=== PATIENT | female | born 1955 | race Caucasian/White ===

== ENCOUNTER 2017-06-23 19:13 | Inpatient (IN) | payer OTHER ==
[~2017-06-23] VITALS: Ht 165.1 cm; Wt 70.1 kg
[~2017-06-23 19:13] MED LIST: ALEN70TA2 PO; CALC-439 PO; DICL-201 PO; DIVA500T5 PO; HYDR-4079 PO; LEVO25TA5 PO; MULT-506 PO; OXCA300T4 PO; PRLSR20 PO; TOPI200T14 PO; TOPI25TA55 PO; TOPI50TA16 PO
[2017-06-23 19:51] LABS: BASO % 0.5 %; BASO ABS # 0.03 K/uL (0-0.2); EOS % 3.5 %; EOS ABS # 0.21 K/uL (0-0.5); HEMATOCRIT 38.2 % (37-47); IG# 0.02 K/uL (0.00-0.02); LYMPH % 44.8 %; LYMPH ABS # 2.69 K/uL (1.2-3.4); MEAN CORPUSCULAR HEMOGLOBIN 32.7 pg (25-34); MEAN PLATELET VOLUME 8.7 fL (7.4-10.4); MONO % 7.3 %; MONO ABS # 0.44 K/uL (0.11-0.59); NEUT % 43.6 %; NEUT ABS # 2.61 K/uL (1.4-6.5); PLATELET COUNT 338 K/uL (130-400); RED CELL DISTRIBUTION WIDTH CV 13.8 % (11.5-14.5)
[2017-06-23] MEDS ORDERED: TRAM-10 PO (19:58)
[2017-06-23] MEDS ORDERED: OXYB15TA PO (19:58)
--- NOTE | 2017-06-23 19:59 | DIAGNOSTIC IMAGING REPORT ---
HEAD CT NONCONTRAST CT DOSE: 1074.96 mGy.cm HISTORY: Altered mental status. TECHNIQUE: Multiaxial CT images of the head were performed without the use of intravenous contrast. Automated exposure control was utilized for this study. A dose lowering technique was utilized adhering to the principles of ALARA. Comparison: None. Findings: The paranasal sinuses and mastoid air cells are clear. Again seen are postoperative changes from left temporal craniotomy with associated encephalomalacia in the left temporal lobe. There is mild associated ex vacuo dilatation of the left lateral ventricle. There are age-related involutional changes noting mild subcortical and periventricular microangiopathic disease. There is no hemorrhage, mass-effect, or evidence of acute territorial ischemia by CT criteria. Aburto-white matter differentiation is maintained. No extra-axial fluid collection is seen. Prior left craniotomy and left temporal craniectomy. Impression: No significant change compared to the prior study. No acute intracranial abnormality. Old postoperative changes as described above Electronically signed by: Jacek Kendall M.D. 06/23/2017 7:58 PM Dictated Date/Time: 06/23/2017 7:52 PM
--- NOTE | 2017-06-23 20:09 | DIAGNOSTIC IMAGING REPORT ---
CHEST ONE VIEW PORTABLE HISTORY: Altered mental status. COMPARISON: Chest 05/30/2013. FINDINGS: Surgical clip within the left upper quadrant. Old, healed left-sided rib fractures. The heart is normal in size. Stable linear scarlike densities within the lung bases. Stable blunting of the left lateral costophrenic sulcus. No pleural effusions. No pneumothorax. No new focal lung consolidations. IMPRESSION: No significant change compared to the prior study. No acute process. Electronically signed by: Jacek Kendall M.D. 06/23/2017 8:07 PM Dictated Date/Time: 06/23/2017 8:06 PM
[2017-06-23 20:14] LABS: ALBUMIN 3.2 gm/dl (3.4-5.0); ALT/SGPT 14 U/L (12-78); AST/SGOT 10 U/L (15-37); BLOOD UREA NITROGEN 26 mg/dl (7-18); CALCIUM 8.2 mg/dl (8.5-10.1); CARBON DIOXIDE 26 mmol/L (21-32); CREATININE 0.68 mg/dl (0.60-1.20); GLUCOSE 89 mg/dl (70-99); POTASSIUM 3.9 mmol/L (3.5-5.1); SODIUM 135 mmol/L (136-145)
[2017-06-23 20:19] LABS: ALKALINE PHOSPHATASE 85 U/L (45-117); TOTAL PROTEIN 7.1 gm/dl (6.4-8.2)
[2017-06-23] MEDS ORDERED: CEFTRIAXONE SOD INJ 1 GM ADDVIAL IV STA (20:32)
[2017-06-23] MEDS ORDERED: ONDANSETRON INJ 2 MG/ML 2 ML VIAL IV PRN (21:30)
[2017-06-23] MEDS ORDERED: DULO60CA44 PO (21:33)
[2017-06-23] MEDS ORDERED: POLY335019 PO (21:33)
[2017-06-23] MEDS ORDERED: TRAMADOL HCL 50 MG TAB PO PRN (21:45)
[2017-06-23] MEDS ORDERED: POLYETHYLENE (MIRALAX) 17 GM PACK PO PRN (21:45)
--- NOTE | 2017-06-23 22:14 | History and Physical ---
History & Physical Date & Time of Service: Jun 23, 2017 at 21:57 Chief Complaint: Altered Mental Status Primary Care Physician: Diann Vaughan M.D. History of Present Illness 61 year old female who presents to the ED with altered mental status. Patient has history of TBI and Epilepsy. History is unobtainable from patient due to her mental status. Per review of outpatient records, patient does have a caregiver however she is unable to provide the name of that person currently. Patient was found wandering the halls of her apartment building. Her neighbors called EMS. Patient is currently without complaint. When asked orientation questions, she responds, "Oh I hate this." In the ED, patient's U/A suggests UTI. Other labs are unremarkable. Vitals are stable. Past Medical/Surgical History Medical Problems: (1) Chronic pain Status: Chronic (2) Epilepsy Status: Chronic (3) Hypothyroidism Status: Chronic (4) TBI (traumatic brain injury) Status: Chronic Surgical Problems: (1) History of cataract surgery Status: Chronic (2) History of hip surgery Status: Chronic (3) S/P surgical manipulation of ankle joint Status: Chronic Family History FH: breast cancer MOTHER Social History Smoking Status: Former Smoker Alcohol Use: none Immunizations History of Influenza Vaccine: Yes Influenza Vaccine Date: Feb 26, 2017 History of Tetanus Vaccine?: Yes Tetanus Immunization Date: Aug 23, 2008 Multi-Drug Resistant Organisms History of MDRO: No Allergies Coded Allergies: Clindamycin (Verified Allergy, Intermediate, RASH, 06/23/17) Lacosamide (Verified Allergy, Unknown, confusion, 06/23/17) Home Medications Scheduled Calcium Carbonate-Vitamin D (Oyster Shell Calcium/D3 500-400 mg-Unit), 1 TAB PO BID Diclofenac (Voltaren), 75 MG PO BID Divalproex Sodium (Depakote Delay Rel), 1,000 MG PO BID Duloxetine Hcl (Cymbalta), 1 CAP PO DAILY Hydrocodone/Acetaminophen 10MG/325MG ([place] 10MG/325MG), 1 TABLET PO BID Levothyroxine Sodium (Levothyroxine Sodium), 25 MCG PO DAILY Multivitamin (Multivitamin), 1 TABLET PO DAILY Omeprazole (Prilosec), 20 MG PO UD Oxcarbazepine (Trileptal), 600 MG PO BID Oxybutynin Chloride (Oxybutynin Chloride Er), 15 MG PO DAILY Topiramate (Topamax), 200 MG PO BID Topiramate (Topamax), 25 MG PO BID Scheduled PRN Polyethylene Glycol 3350 (Miralax), 17 GM PO DAILY PRN for Constipation Tramadol (Ultram), 50 MG PO Q6H PRN for Pain Review of Systems unobtainable due to patient's mental status Physical Exam Vital Signs Date Time Temp Pulse Resp B/P (MAP) Pulse Ox O2 Delivery O2 Flow Rate FiO2 06/23/17 21:43 78 17 97 06/23/17 21:28 84 22 96 06/23/17 21:13 80 22 95 06/23/17 20:58 82 14 97 06/23/17 20:43 81 96 06/23/17 20:30 152/76 06/23/17 20:28 78 17 95 06/23/17 20:13 77 20 97 06/23/17 20:01 146/37 06/23/17 19:58 82 24 98 06/23/17 19:30 153/86 06/23/17 19:28 83 18 98 Room Air 06/23/17 19:21 82 06/23/17 19:18 167/110 06/23/17 19:18 36.6 93 19 167/110 96 Room Air General Appearance: WD/WN, no apparent distress Head: normocephalic, atraumatic Eyes: normal inspection, EOMI, sclerae normal ENT: hearing grossly normal, + pertinent finding (mucous membranes dry) Neck: supple, no JVD, trachea midline Respiratory/Chest: no respiratory distress, + crackles (faint right base that clear with coughing) Cardiovascular: regular rate, rhythm, no edema, normal peripheral pulses Abdomen/GI: normal bowel sounds, non tender, soft, no organomegaly Back: no CVA tenderness Extremities/Musculoskelatal: normal inspection, no calf tenderness, normal capillary refill Neurologic/Psych: no motor/sensory deficits, alert, + disoriented (to time, place, and situation) Skin: normal color, warm/dry Diagnostics Laboratory Results Results Past 24 Hours Test 06/23/17 19:29 06/23/17 19:40 06/23/17 19:57 Range/Units Bedside Glucose 97 70-90 mg/dl White Blood Count 6.00 4.8-10.8 K/uL Red Blood Count 3.98 4.2-5.4 M/uL Hemoglobin 13.0 12.0-16.0 g/dL Hematocrit 38.2 37-47 % Mean Corpuscular Volume 96.0 80-100 fL Mean Corpuscular Hemoglobin 32.7 25-34 pg Mean Corpuscular Hemoglobin Concent 34.0 32-36 g/dl Platelet Count 338 130-400 K/uL Mean Platelet Volume 8.7 7.4-10.4 fL Neutrophils (%) (Auto) 43.6 % Lymphocytes (%) (Auto) 44.8 % Monocytes (%) (Auto) 7.3 % Eosinophils (%) (Auto) 3.5 % Basophils (%) (Auto) 0.5 % Neutrophils # (Auto) 2.61 1.4-6.5 K/uL Lymphocytes # (Auto) 2.69 1.2-3.4 K/uL Monocytes # (Auto) 0.44 0.11-0.59 K/uL Eosinophils # (Auto) 0.21 0-0.5 K/uL Basophils # (Auto) 0.03 0-0.2 K/uL RDW Standard Deviation 49.0 36.4-46.3 fL RDW Coefficient of Variation 13.8 11.5-14.5 % Immature Granulocyte % (Auto) 0.3 % Immature Granulocyte # (Auto) 0.02 0.00-0.02 K/uL Macrocytosis PRESENT Prothrombin Time 10.6 9.0-12.0 SECONDS Prothromb Time International Ratio 1.0 0.9-1.1 Activated Partial Thromboplast Time 27.0 21.0-31.0 SECONDS Partial Thromboplastin Ratio 1.0 Sodium Level 135 136-145 mmol/L Potassium Level 3.9 3.5-5.1 mmol/L Chloride Level 104 98-107 mmol/L Carbon Dioxide Level 26 21-32 mmol/L Anion Gap 5.0 3-11 mmol/L Blood Urea Nitrogen 26 7-18 mg/dl Creatinine 0.68 0.60-1.20 mg/dl Estimated GFR () 107.1 Estimated GFR (Non- 92.4 BUN/Creatinine Ratio 38.0 10-20 Random Glucose 89 70-99 mg/dl Calcium Level 8.2 8.5-10.1 mg/dl Total Bilirubin 0.4 0.2-1 mg/dl Direct Bilirubin 0.1 0-0.2 mg/dl Aspartate Amino Transf (AST/SGOT) 10 15-37 U/L Alanine Aminotransferase (ALT/SGPT) 14 12-78 U/L Alkaline Phosphatase 85 45-117 U/L Troponin I < 0.015 0-0.045 ng/ml Total Protein 7.1 6.4-8.2 gm/dl Albumin 3.2 3.4-5.0 gm/dl Valproic Acid (Depakene) Level 69 50-100 mcg/ml Urine Color YELLOW Urine Appearance CLOUDY CLEAR Urine pH 7.5 4.5-7.5 Urine Specific [place] 1.015 1.000-1.030 Urine Protein NEG NEG Urine Glucose (UA) NEG NEG Urine Ketones NEG NEG Urine Occult Blood 1+ NEG Urine Nitrite POS NEG Urine Bilirubin NEG NEG Urine Urobilinogen NEG NEG Urine Leukocyte Esterase SMALL NEG Urine WBC (Auto) 10-30 0-5 /hpf Urine RBC (Auto) 5-10 0-4 /hpf Urine Hyaline Casts (Auto) 1-5 0-5 /lpf Urine Epithelial Cells (Auto) 10-20 0-5 /lpf Urine Bacteria (Auto) 3+ NEG Microbiology Results 06/23/17 Urine Culture, Received Pending Diagnostic Radiology CT Head Impression: No significant change compared to the prior study. No acute intracranial abnormality. Old postoperative changes as described above CXR IMPRESSION: No significant change compared to the prior study. No acute process. Impression Assessment and Plan METABOLIC ENCEPHALOPATHY DUE TO UTI - admit to med/surg - patient presenting to ED after being found wandering in her apartment building , neighbors called EMS; in the ED, patient's U/A suggestive of UTI - head CT negative for acute findings - s/p Rocephin in the ED, will continue with and adjust per culture results - no signs of sepsis - IVF - if patient does not improve with above treatment, could consider neuro work up - will need to reach out to family/caregiver tomorrow to determine baseline mental status HX TBI, EPILEPSY - appears stable - nothing in the history to suggest seizure like activity or postictal state - continue oxcarbazepine, divalproex, and topiramate - noted normal valproic acid level HYPOTHYROIDISM - TSH WNL - continue levothyroxine DVT PROPHYLAXIS - SQ Lovenox DISPO - In my clinical judgment this beneficiary meets acute admission criteria, established by [facility], that includes being hospitalized through two midnights. - PT/OT lolly I have seen and evaluated the patient and agree with the assessment and plan as above. After receiving a dose of antibiotic, she is able to tell me she is in a hospital and she knows the president and the month. She is still exhibiting an expressive aphasia that she reports is chronic for her since the TBI. Nonfocal exam and CT head negative but Neuro evaluation appreciated in this setting of seizures and h/o TBI. Mark Anthony, DO VTE Prophylaxis VTE Risk Assessment Done? Y/N: Yes Risk Level: Moderate
[2017-06-23 23:00] VITALS: BP 162/104; PULSE 90; TEMP 36.4; O2SAT 98; Ht 165.1 cm; Wt 70.1 kg
[2017-06-23 23:55] VITALS: BP 154/89; PULSE 77; TEMP 36.7; O2SAT 98
[2017-06-24] MEDS: SODIUM CHLORIDE 0.9% 1000ML 1,000 ML IV SCH ×2 (00:07→14:07)
[2017-06-24] MEDS: ENOXAPARIN 40 MG/0.4 ML SYR SQ SCH ×2 (00:07→20:46)
--- NOTE | 2017-06-24 00:23 | EMERGENCY ROOM VISIT NOTE ---
History Report prepared by Nusrat: Christopher Vieira Under the Supervision of: Gregory SmithO. First contact with patient: 19:34 Chief Complaint: NEURO SYMPTOMS Stated Complaint: CONFUSION, AMS Nursing Triage Summary: Found standing in hallway in defensive posture, non-combative by other residence in her apartment building hallway. Unknown time of onset. Pt is oriented to person, disoriented to place and month. Denies symptoms. Poor historian. History of Present Illness The patient is a 62 year old female who presents to the Emergency Room with complaints of neuro symptoms starting prior to arrival. Per the nursing staff, the patient was found confused wandering her hallway staring off into the distance, and the neighbors called the EMS. The patient denies any headache, chest pain, shortness of breath, abdominal pain, and pain with urination. She states that she is having some right knee pain. History is limited secondary to altered mental status. The patient has a history of epilepsy and TBI. Source of History: patient, nursing staff History Limited By: AMS Onset: prior to arrival Position: other (global) Quality: other (neuro symptoms) Timing: other (persistent) Associated Symptoms: No headache, No chest pain, No SOB, No abdominal pain Note: Associated symptoms: Confusion Review of Systems The patient's history is limited secondary to altered mental status Past Medical & Surgical Medical Problems: (1) Chronic pain (2) Epilepsy (3) Hypothyroidism (4) TBI (traumatic brain injury) Surgical Problems: (1) History of cataract surgery (2) History of hip surgery (3) S/P surgical manipulation of ankle joint Family History FH: cancer FH: heart disease Seizures Social History Smoking Status: Former Smoker Alcohol Use: none Drug Use: none Marital Status: Occupation Status: disabled Current/Historical Medications Scheduled Calcium Carbonate-Vitamin D (Oyster [place] Calcium/D3 500-400 mg-Unit), 1 TAB PO BID Diclofenac (Voltaren), 75 MG PO BID Divalproex Sodium (Depakote Delay Rel), 1,000 MG PO BID Duloxetine Hcl (Cymbalta), 1 CAP PO DAILY Hydrocodone/Acetaminophen 10MG/325MG ([place] 10MG/325MG), 1 TABLET PO BID Levothyroxine Sodium (Levothyroxine Sodium), 25 MCG PO DAILY Multivitamin (Multivitamin), 1 TABLET PO DAILY Omeprazole (Prilosec), 20 MG PO UD Oxcarbazepine (Trileptal), 600 MG PO BID Oxybutynin Chloride (Oxybutynin Chloride Er), 15 MG PO DAILY Topiramate (Topamax), 200 MG PO BID Topiramate (Topamax), 25 MG PO BID Scheduled PRN Polyethylene Glycol 3350 (Miralax), 17 GM PO DAILY PRN for Constipation Tramadol (Ultram), 50 MG PO Q6H PRN for Pain Allergies Coded Allergies: Clindamycin (Verified Allergy, Intermediate, RASH, 06/23/17) Lacosamide (Verified Allergy, Unknown, confusion, 06/23/17) Physical Exam Vital Signs Date Time Temp Pulse Resp B/P (MAP) Pulse Ox O2 Delivery O2 Flow Rate FiO2 06/23/17 21:13 80 22 95 06/23/17 20:58 82 14 97 06/23/17 20:43 81 96 06/23/17 20:30 152/76 06/23/17 20:28 78 17 95 06/23/17 20:13 77 20 97 06/23/17 20:01 146/37 06/23/17 19:58 82 24 98 06/23/17 19:30 153/86 06/23/17 19:28 83 18 98 Room Air 06/23/17 19:21 82 06/23/17 19:18 167/110 06/23/17 19:18 36.6 93 19 167/110 96 Room Air Physical Exam GENERAL: Sitting up in bed, confused but following commands. EYE EXAM: normal conjunctiva. PERRL and EOM's intact. OROPHARYNX: no exudate, no erythema, lips, buccal mucosa, and tongue normal and mucous membranes are moist NECK: supple, no nuchal rigidity, no adenopathy, non-tender LUNGS: Clear to auscultation. Normal chest wall mechanics HEART: no murmurs, S1 normal and S2 normal ABDOMEN: abdomen soft, non-tender, normo-active bowel sounds, no masses, no rebound or guarding. BACK: Back is symmetrical on inspection and there is no deformity, no midline tenderness, no CVA tenderness. SKIN: no rashes and no bruising UPPER EXTREMITIES: upper extremities are grossly normal. LOWER EXTREMITIES: No pitting edema. NEURO EXAM: Oriented to person, not place, year, or date. Slight right sided facial droop, cranial nerves II-XII intact, normal speech, no weakness of arms , no weakness of legs. No drift. Finger to nose intact. Gross sensation intact. Medical Decision & Procedures ER Provider Diagnostic Interpretation: Radiology results as stated below per my review and the radiologist's interpretation: HEAD CT NONCONTRAST CT DOSE: 1074.96 mGy.cm HISTORY: Altered mental status. TECHNIQUE: Multiaxial CT images of the head were performed without the use of intravenous contrast. Automated exposure control was utilized for this study. A dose lowering technique was utilized adhering to the principles of ALARA. Comparison: None. Findings: The paranasal sinuses and mastoid air cells are clear. Again seen are postoperative changes from left temporal craniotomy with associated encephalomalacia in the left temporal lobe. There is mild associated ex vacuo dilatation of the left lateral ventricle. There are age-related involutional changes noting mild subcortical and periventricular microangiopathic disease. There is no hemorrhage, mass-effect, or evidence of acute territorial ischemia by CT criteria. Aburto-white matter differentiation is maintained. No extra-axial fluid collection is seen. Prior left craniotomy and left temporal craniectomy. Impression: No significant change compared to the prior study. No acute intracranial abnormality. Old postoperative changes as described above Electronically signed by: Jacek Kendall M.D. 06/23/2017 7:58 PM Dictated Date/Time: 06/23/2017 7:52 PM CHEST ONE VIEW PORTABLE HISTORY: Altered mental status. COMPARISON: Chest 05/30/2013. FINDINGS: Surgical clip within the left upper quadrant. Old, healed left-sided rib fractures. The heart is normal in size. Stable linear scarlike densities within the lung bases. Stable blunting of the left lateral costophrenic sulcus. No pleural effusions. No pneumothorax. No new focal lung consolidations. IMPRESSION: No significant change compared to the prior study. No acute process. Electronically signed by: Jacek Kendall M.D. 06/23/2017 8:07 PM Dictated Date/Time: 06/23/2017 8:06 PM Laboratory Results 06/23/17 19:40 Red Blood Count 3.98, Mean Corpuscular Volume 96.0, Mean Corpuscular Hemoglobin 32.7, Mean Corpuscular Hemoglobin Concent 34.0, Mean Platelet Volume 8.7, Neutrophils (%) (Auto) 43.6, Lymphocytes (%) (Auto) 44.8, Monocytes (%) (Auto) 7.3, Eosinophils (%) (Auto) 3.5, Basophils (%) (Auto) 0.5, Neutrophils # (Auto) 2.61, Lymphocytes # (Auto) 2.69, Monocytes # (Auto) 0.44, Eosinophils # (Auto) 0.21, Basophils # (Auto) 0.03 06/23/17 19:40 Test 06/23/17 19:29 06/23/17 19:40 06/23/17 19:57 Bedside Glucose 97 mg/dl (70-90) White Blood Count 6.00 K/uL (4.8-10.8) Red Blood Count 3.98 M/uL (4.2-5.4) Hemoglobin 13.0 g/dL (12.0-16.0) Hematocrit 38.2 % (37-47) Mean Corpuscular Volume 96.0 fL (80-100) Mean Corpuscular Hemoglobin 32.7 pg (25-34) Mean Corpuscular Hemoglobin Concent 34.0 g/dl (32-36) Platelet Count 338 K/uL (130-400) Mean Platelet Volume 8.7 fL (7.4-10.4) Neutrophils (%) (Auto) 43.6 % Lymphocytes (%) (Auto) 44.8 % Monocytes (%) (Auto) 7.3 % Eosinophils (%) (Auto) 3.5 % Basophils (%) (Auto) 0.5 % Neutrophils # (Auto) 2.61 K/uL (1.4-6.5) Lymphocytes # (Auto) 2.69 K/uL (1.2-3.4) Monocytes # (Auto) 0.44 K/uL (0.11-0.59) Eosinophils # (Auto) 0.21 K/uL (0-0.5) Basophils # (Auto) 0.03 K/uL (0-0.2) RDW Standard Deviation 49.0 fL (36.4-46.3) RDW Coefficient of Variation 13.8 % (11.5-14.5) Immature Granulocyte % (Auto) 0.3 % Immature Granulocyte # (Auto) 0.02 K/uL (0.00-0.02) Macrocytosis PRESENT Prothrombin Time 10.6 SECONDS (9.0-12.0) Prothromb Time International Ratio 1.0 (0.9-1.1) Activated Partial Thromboplast Time 27.0 SECONDS (21.0-31.0) Partial Thromboplastin Ratio 1.0 Anion Gap 5.0 mmol/L (3-11) Estimated GFR () 107.1 Estimated GFR (Non- 92.4 BUN/Creatinine Ratio 38.0 (10-20) Calcium Level 8.2 mg/dl (8.5-10.1) Total Bilirubin 0.4 mg/dl (0.2-1) Direct Bilirubin 0.1 mg/dl (0-0.2) Aspartate Amino Transf (AST/SGOT) 10 U/L (15-37) Alanine Aminotransferase (ALT/SGPT) 14 U/L (12-78) Alkaline Phosphatase 85 U/L (45-117) Troponin I < 0.015 ng/ml (0-0.045) Total Protein 7.1 gm/dl (6.4-8.2) Albumin 3.2 gm/dl (3.4-5.0) Thyroid Stimulating Hormone (TSH) 2.290 uIu/ml (0.300-4.500) Valproic Acid (Depakene) Level 69 mcg/ml (50-100) Urine Color YELLOW Urine Appearance CLOUDY (CLEAR) Urine pH 7.5 (4.5-7.5) Urine Specific [place] 1.015 (1.000-1.030) Urine Protein NEG (NEG) Urine Glucose (UA) NEG (NEG) Urine Ketones NEG (NEG) Urine Occult Blood 1+ (NEG) Urine Nitrite POS (NEG) Urine Bilirubin NEG (NEG) Urine Urobilinogen NEG (NEG) Urine Leukocyte Esterase SMALL (NEG) Urine WBC (Auto) 10-30 /hpf (0-5) Urine RBC (Auto) 5-10 /hpf (0-4) Urine Hyaline Casts (Auto) 1-5 /lpf (0-5) Urine Epithelial Cells (Auto) 10-20 /lpf (0-5) Urine Bacteria (Auto) 3+ (NEG) Urine Opiates Screen POS (NEG) Urine Methadone, Qualitative NEG (NEG) Urine Barbiturates NEG (NEG) Urine Phencyclidine (PCP) Level NEG (NEG) Ur Amphetamine/Methamphetamine NEG (NEG) MDMA (Ecstasy) Screen NEG (NEG) Urine Benzodiazepines Screen NEG (NEG) Urine Cocaine Metabolite NEG (NEG) Urine Marijuana (THC) NEG (NEG) Laboratory results per my review. Medications Administered Medications (Trade) Dose Ordered Sig/Ten Route Start Time Stop Time Status Last Admin Dose Admin Ceftriaxone Sodium (Rocephin Inj) 1 gm NOW STAT IV 06/23/17 20:32 06/23/17 20:33 DC 06/23/17 20:54 1 GM ECG Indication: other (neuro symptoms) Rate (beats per minute): 77 Rhythm: sinus rhythm Findings: no ectopy, other (normal axis) Change: EKG interpreted by me. ED Course ED COURSE: Vital signs were reviewed and showed situational hypertension The patients medical record was reviewed The above diagnostic studies were performed and reviewed. ED treatments and interventions as stated above. 1933: The patient was evaluated in room B7. A complete history and physical examination was performed. 2031: Rocephin 1gm IV 2042: I tried to call the patient's sister, and I was unsuccessful. 2044: Upon reevaluation, the patient is resting.I discussed my findings with the patient and she understands and agrees with the treatment plan. Based on the patients age, coexisting illnesses, exam and lab findings the decision to treat as an inpatient was made. The patient remained stable while under my care. The patient will be evaluated for further management. 2053: I reviewed the patient's case with Dr. Mark Anthony Kelly Hospitalist. She will evaluate the patient for further management. Medical Decision Differential diagnoses includes but is not limited to toxic, metabolic, infectious, traumatic, cardiac, neurologic, hematologic, psychiatric and inflammatory etiologies. Patient is a 62-year-old female who presents to ER brought in as she is wondering halls of an apartment complex confused. Unable to contact family. She has no complaints at this time. Does have a history of TBI per chart review. CBC unremarkable. BMP along with LFTs, bilirubin and troponin was negative. TSH normal. UA has nitrates, leuks, white cells and +3 bacteria. Patient was given IV Rocephin. CT head and chest x-ray was unremarkable. She is admitted to internal medicine for altered mental status and a UTI. Medication Reconcilliation Current Medication List: was personally reviewed by me Blood Pressure Screening Patient's blood pressure: Elevated blood pressure Blood pressure disposition: Elevated BP felt to be situational Consults Time Called: 2049 Consulting Physician: Dr. Mark Anthony Kelly Hospitalist Returned Call: 2053 I reviewed the patient's case with Dr. Mark Anthony [facility]. She will evaluate the patient for further management. Impression Primary Impression: Altered mental status Additional Impression: UTI (urinary tract infection) Scribe Attestation The scribe's documentation has been prepared under my direction and personally reviewed by me in its entirety. I confirm that the note above accurately reflects all work, treatment, procedures, and medical decision making performed by me. Departure Information Dispostion Being Evaluated By Hospitalist Referrals Diann Vaughan M.D. (PCP) Patient Instructions My [facility] Problem Qualifiers Primary Impression: Altered mental status Altered mental status type: unspecified Qualified Codes: R41.82 - Altered mental status, unspecified Additional Impression: UTI (urinary tract infection) Urinary tract infection type: acute cystitis Hematuria presence: with hematuria Qualified Codes: N30.01 - Acute cystitis with hematuria
[2017-06-24] MEDS: DIVALPROEX SODIUM 500 MG DELAY RELEASE TAB PO SCH ×3 (01:10→20:41)
[2017-06-24] MEDS: TOPIRAMATE 25 MG TAB PO SCH ×3 (01:12→20:47)
[2017-06-24] MEDS: TOPIRAMATE 100 MG TAB PO SCH ×3 (01:12→20:42)
[2017-06-24] MEDS: OXCARBAZEPINE 150 MG TAB PO SCH ×3 (01:13→20:42)
[2017-06-24 05:57] LABS: HEMATOCRIT 37.3 % (37-47); HEMOGLOBIN 12.4 g/dL (12.0-16.0); MEAN CELL VOLUME 95.2 fL (80-100); MEAN CORPUSCULAR HEMOGLOBIN 31.6 pg (25-34); MEAN CORPUSCULAR HGB CONC 33.2 g/dl (32-36); MEAN PLATELET VOLUME 8.9 fL (7.4-10.4); PLATELET COUNT 309 K/uL (130-400); RED CELL DISTRIBUTION WIDTH CV 13.7 % (11.5-14.5); RED CELL DISTRIBUTION WIDTH SD 47.5 fL (36.4-46.3); WHITE BLOOD COUNT 7.94 K/uL (4.8-10.8)
[2017-06-24] MEDS: LEVOTHYROXINE 25 MCG TAB PO SCH (06:20)
[2017-06-24 06:49] LABS: CREATININE 0.59 mg/dl (0.60-1.20); POTASSIUM 3.7 mmol/L (3.5-5.1)
[2017-06-24] MEDS: DULOXETINE HCL 60 MG CAP PO SCH (07:19)
[2017-06-24] MEDS: PANTOprazole SOD 40 MG TAB PO SCH (07:19)
[2017-06-24] MEDS: MULTIVITAMIN TAB PO SCH (07:20)
[2017-06-24] MEDS: OXYBUTYNIN CHLORIDE 5 MG TABCR PO SCH (07:20)
[2017-06-24] MEDS: DICLOFENAC SOD EC 75 MG TABCR PO SCH ×2 (07:20→20:44)
[2017-06-24] MEDS: CALCIUM 600MG + VIT D 400 IU TAB PO SCH ×2 (07:20→20:43)
[2017-06-24 07:47] VITALS: BP 135/86; PULSE 69; TEMP 36.7; O2SAT 97
[2017-06-24] MEDS ORDERED: DIVALPROEX SODIUM 500 MG DELAY RELEASE TAB PO SCH (08:00)
[2017-06-24] MEDS ORDERED: OXCARBAZEPINE 150 MG TAB PO SCH (08:00)
[2017-06-24] MEDS ORDERED: TOPIRAMATE 100 MG TAB PO SCH (08:00)
[2017-06-24] MEDS ORDERED: TOPIRAMATE 25 MG TAB PO SCH (08:00)
--- NOTE | 2017-06-24 14:17 | Neurology Consultation ---
Neurology Consultation Date of Consultation: Jun 24, 2017. Attending Physician: Satish Dick M.D. Primary Care Physician: Diann Vaughan M.D. History of Present Illness Source: patient enter into patients chart in error. Dr Gomez patient will be consulting him for work up Past Medical/Surgical History Medical Problems: (1) Altered mental status Status: Acute (2) UTI (urinary tract infection) Status: Acute Social History Smoking Status: Former smoker Drug Use: none Marital Status: Occupation Status: disabled Allergies Coded Allergies: Clindamycin (Verified Allergy, Intermediate, RASH, 06/23/17) Lacosamide (Verified Allergy, Unknown, confusion, 06/23/17) Review of Systems Cardiovascular: + PND
[2017-06-24 15:34] VITALS: BP 121/76; PULSE 91; TEMP 36.8; O2SAT 98
--- NOTE | 2017-06-24 19:42 | Progress Note ---
Medicine Progress Note Date & Time of Visit: Jun 24, 2017 at 19:42 . Subjective CC: Follow-up visit for altered mental status and other problems. HPI: Feels better today. No fever. No chest pain. No cough or SOB. No nausea, vomiting, diarrhea. No dysuria. ROS: as noted above in HPI . Objective Last 8 Hrs Date Time Temp Pulse Resp B/P (MAP) Pulse Ox O2 Delivery O2 Flow Rate FiO2 06/24/17 16:00 Room Air 06/24/17 15:34 36.8 91 18 121/76 (91) 98 Room Air Physical Exam: General- lying in bed; o distress Lungs- clear to auscultation; no respiratory distress Cardiovascular- RRR; no gallop; no JVD; no pretibial edema Abdomen- + bowel sounds, soft, nontender Extremities- no cyanosis; no calf tenderness Neuro- alert, oriented per day of week, year, president; slow mentation; some difficulty with word finding Skin- warm & dry . Laboratory Results: Last 24 Hours Test 06/23/17 19:57 06/24/17 05:40 Urine Color YELLOW Urine Appearance CLOUDY Urine pH 7.5 Urine Specific [place] 1.015 Urine Protein NEG Urine Glucose (UA) NEG Urine Ketones NEG Urine Occult Blood 1+ Urine Nitrite POS Urine Bilirubin NEG Urine Urobilinogen NEG Urine Leukocyte Esterase SMALL Urine WBC (Auto) 10-30 /hpf Urine RBC (Auto) 5-10 /hpf Urine Hyaline Casts (Auto) 1-5 /lpf Urine Epithelial Cells (Auto) 10-20 /lpf Urine Bacteria (Auto) 3+ Urine Opiates Screen POS Urine Methadone, Qualitative NEG Urine Barbiturates NEG Urine Phencyclidine (PCP) Level NEG Ur Amphetamine/Methamphetamine NEG MDMA (Ecstasy) Screen NEG Urine Benzodiazepines Screen NEG Urine Cocaine Metabolite NEG Urine Marijuana (THC) NEG White Blood Count 7.94 K/uL Red Blood Count 3.92 M/uL Hemoglobin 12.4 g/dL Hematocrit 37.3 % Mean Corpuscular Volume 95.2 fL Mean Corpuscular Hemoglobin 31.6 pg Mean Corpuscular Hemoglobin Concent 33.2 g/dl RDW Standard Deviation 47.5 fL RDW Coefficient of Variation 13.7 % Platelet Count 309 K/uL Mean Platelet Volume 8.9 fL Sodium Level 135 mmol/L Potassium Level 3.7 mmol/L Chloride Level 103 mmol/L Carbon Dioxide Level 24 mmol/L Anion Gap 8.0 mmol/L Blood Urea Nitrogen 20 mg/dl Creatinine 0.59 mg/dl Est Creatinine Clear Calc Drug Dose 94.6 ml/min Estimated GFR () 112.3 Estimated GFR (Non- 96.9 BUN/Creatinine Ratio 34.1 Random Glucose 90 mg/dl Calcium Level 8.0 mg/dl Date/Time Source Procedure Growth Status 06/23/17 19:57 Urine,Catheterized Urine Culture - Preliminary Gram Negative Bacilli Resulted Assessment & Plan ALTERED MENTAL STATUS Head CT showed chronic changes. Probable encephalopathy secondary to UTI. Consult Neuro- known to Dr. Bustillo. UTI UA showed WBC's and bacteria. Culture results pending. Continue ceftriaxone. SEIZURE DISORDER Continue usual anticonvulsants. VTE PROPHYLAXIS SQ enoxaparin. DISPOSITION Expected discharge to [facility]. Family Medicine follow-up with Dr. Vaughan. . Current Inpatient Medications: Current Inpatient Medications Medications (Trade) Dose Ordered Sig/Ten Route Start Time Stop Time Status Last Admin Dose Admin Enoxaparin Sodium (Lovenox Inj) 40 mg Q24H SQ 06/23/17 23:00 07/23/17 22:59 06/24/17 00:07 40 MG Acetaminophen (Tylenol Tab) 650 mg Q4H PRN PO 06/23/17 21:30 07/23/17 21:29 Ondansetron HCl (Zofran Inj) 4 mg Q6H PRN IV 06/23/17 21:30 07/23/17 21:29 Sodium Chloride 1,000 ml @ 80 mls/hr [id number] IV 06/23/17 23:00 07/23/17 22:59 06/24/17 14:07 80 MLS/HR Ceftriaxone Sodium 1 gm/ Dextrose 50 ml @ 100 mls/hr Q24H IV 06/24/17 21:00 07/02/17 21:29 Diclofenac Sodium (Voltaren Tab) 75 mg BID PO 06/24/17 08:00 07/24/17 08:59 06/24/17 07:20 75 MG Duloxetine HCl (Cymbalta Cap) 60 mg DAILY PO 06/24/17 08:00 07/24/17 08:59 06/24/17 07:19 60 MG Acetaminophen/ Hydrocodone Bitart ([place] 10/325 Tab) 1 tab BID PRN PO 06/23/17 21:45 07/07/17 21:44 Levothyroxine Sodium (Synthroid Tab) 25 mcg DAILYBB PO 06/24/17 06:30 07/24/17 06:59 06/24/17 06:20 25 MCG Multivitamins (Multivitamin Tab) 1 tab DAILY PO 06/24/17 08:00 07/24/17 08:59 06/24/17 07:20 1 TAB Calcium/Vitamin D (Caltrate Plus Tab) 1 tab BID PO 06/24/17 08:00 07/24/17 08:59 06/24/17 07:20 1 TAB Pantoprazole Sodium (Protonix Tab) 40 mg QAM PO 06/24/17 08:00 07/24/17 08:59 06/24/17 07:19 40 MG Oxybutynin Chloride (Ditropan-Xl Tab) 15 mg DAILY PO 06/24/17 08:00 07/24/17 08:59 06/24/17 07:20 15 MG Polyethylene (Miralax Powder Packet) 17 gm DAILY PRN PO 06/23/17 21:45 07/23/17 21:44 Divalproex Sodium (Depakote Delay Rel Tab) 1,000 mg BID PO 06/24/17 00:45 07/24/17 08:59 06/24/17 07:21 1,000 MG Oxcarbazepine (Trileptal Tab) 600 mg BID PO 06/24/17 00:45 07/24/17 08:59 06/24/17 07:20 600 MG Topiramate (Topamax Tab) 25 mg BID PO 06/24/17 00:45 07/24/17 08:59 06/24/17 07:20 25 MG Topiramate (Topamax Tab) 200 mg BID PO 06/24/17 00:45 07/24/17 08:59 06/24/17 07:21 200 MG
[2017-06-24] MEDS: CEFTRIAXONE SOD INJ 1 GM in DEXTROSE 5% ADD-VANTAGE 50ML 50 ML IV SCH (20:44)
[2017-06-25] VITALS: BP 145/92; PULSE 76; TEMP 36.5; O2SAT 100
[2017-06-25] MEDS: SODIUM CHLORIDE 0.9% 1000ML 1,000 ML IV SCH ×2 (00:04→12:37)
[2017-06-25 06:14] LABS: CALCIUM 7.8 mg/dl (8.5-10.1); CREATININE 0.57 mg/dl (0.60-1.20); POTASSIUM 3.3 mmol/L (3.5-5.1)
[2017-06-25] MEDS: LEVOTHYROXINE 25 MCG TAB PO SCH (06:45)
[2017-06-25] MEDS: DICLOFENAC SOD EC 75 MG TABCR PO SCH ×2 (07:25→20:11)
[2017-06-25] MEDS: MULTIVITAMIN TAB PO SCH (07:25)
[2017-06-25] MEDS: TOPIRAMATE 25 MG TAB PO SCH ×2 (07:25→20:10)
[2017-06-25] MEDS: PANTOprazole SOD 40 MG TAB PO SCH (07:25)
[2017-06-25] MEDS: TOPIRAMATE 100 MG TAB PO SCH ×2 (07:25→20:10)
[2017-06-25] MEDS: OXCARBAZEPINE 150 MG TAB PO SCH ×2 (07:26→20:10)
[2017-06-25] MEDS: CALCIUM 600MG + VIT D 400 IU TAB PO SCH ×2 (07:26→20:09)
[2017-06-25] MEDS: DIVALPROEX SODIUM 500 MG DELAY RELEASE TAB PO SCH ×2 (07:26→20:09)
[2017-06-25] MEDS: DULOXETINE HCL 60 MG CAP PO SCH (07:26)
[2017-06-25] MEDS: OXYBUTYNIN CHLORIDE 5 MG TABCR PO SCH (07:26)
[2017-06-25] MEDS ORDERED: POTASSIUM CHLORIDE 20 MEQ TABCR PO ONE (07:30)
--- NOTE | 2017-06-25 08:09 | DIAGNOSTIC IMAGING REPORT ---
EXAMINATION: RENAL ULTRASOUND CLINICAL HISTORY: Urinary tract infection COMPARISON STUDY: CT scan performed December 2009 FINDINGS: The right kidney measures 10.9 cm. The left kidney measures 10.8 cm. There is no evidence of hydronephrosis. There is a 17 mm upper pole right renal cyst. There is a 13 mm septated mid pole left renal cyst. There is a prominent mid pole left renal cortical scar. There is a 13 mm upper pole left renal calcification. No bladder abnormalities are identified. Neither ureteral jet was visualized. IMPRESSION : 1. No evidence of hydronephrosis 2. Left renal cortical scar 3. 13 mm upper pole left renal calcification 4. 17 mm right renal cyst. 13 mm septated left renal cyst Electronically signed by: Rubin Shay M.D. 06/25/2017 8:08 AM Dictated Date/Time: 06/25/2017 8:05 AM
[2017-06-25 08:45] VITALS: BP 122/86; PULSE 86; TEMP 36.5; O2SAT 92
[2017-06-25 09:59] VITALS: O2SAT 92
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
[2017-06-25 12:39] VITALS: BP 122/80; PULSE 88; TEMP 36.7; O2SAT 98
--- NOTE | 2017-06-25 18:57 | Progress Note ---
Internal Med Progress Note Date of Service: Jun 25, 2017. Provider Documentation: SUBJECTIVE: resting in the bed seems comfortable denies any chest pain or sob afebrile denies any nausea no cough can tell her name and date of Knows this is June but thinks its in doesn't know where exactly she is OBJECTIVE: Vital Signs-as noted below Exam: General-alert and oriented x 1. Not in distress ENT-Normal hearing Neck-no neck masses Lungs-cta b/l no wheezing or crackles Heart-S 1 and S 2heard regular rate and rhythm no murmurs Abdomen-soft bowel sounds present non tender no distension Extremities-no edema no erythema Neuro-alert and awake moves extremities Lab data as noted below. ASSESSMENT & PLAN: ALTERED MENTAL STATUS metabolic encephalopathy for uti? possibly post ictal by neurology appreciate neurology inputs continue to monitor UTI UA showed WBC's and bacteria. on Rocephin await cx SEIZURE DISORDER on home anticonvulsants. appreciate neurology inputs will f/u levels VTE PROPHYLAXIS SQ enoxaparin. DISPOSITION Expected discharge to [facility] when stable. Family Medicine follow-up with Dr. Vaughan Social service for d/c planning Vital Signs: Date Time Temp Pulse Resp B/P (MAP) Pulse Ox O2 Delivery O2 Flow Rate FiO2 06/25/17 16:00 Room Air 06/25/17 12:39 36.7 88 14 122/80 (94) 98 Room Air 06/25/17 09:59 92 Room Air 06/25/17 09:30 Room Air 06/25/17 08:45 36.5 86 14 122/86 (98) 92 Room Air 06/25/17 00:14 Room Air 06/25/17 00:00 36.5 76 20 145/92 (109) 100 Room Air Lab Results: Results Past 24 Hours Test 06/25/17 05:40 Range/Units Sodium Level 132 136-145 mmol/L Potassium Level 3.3 3.5-5.1 mmol/L Chloride Level 102 98-107 mmol/L Carbon Dioxide Level 24 21-32 mmol/L Anion Gap 6.0 3-11 mmol/L Blood Urea Nitrogen 16 7-18 mg/dl Creatinine 0.57 0.60-1.20 mg/dl Est Creatinine Clear Calc Drug Dose 98.0 ml/min Estimated GFR () 113.5 Estimated GFR (Non- 98.0 BUN/Creatinine Ratio 28.5 10-20 Random Glucose 100 70-99 mg/dl Calcium Level 7.8 8.5-10.1 mg/dl Microbiology Results 06/25/17 Urine Culture, Received Pending
[2017-06-25] MEDS: CEFTRIAXONE SOD INJ 1 GM in DEXTROSE 5% ADD-VANTAGE 50ML 50 ML IV SCH (21:31)
[2017-06-25] MEDS: ENOXAPARIN 40 MG/0.4 ML SYR SQ SCH (21:32)
[2017-06-25 22:24] VITALS: BP 148/87; PULSE 95; TEMP 36.7; O2SAT 99
[2017-06-26] MEDS: SODIUM CHLORIDE 0.9% 1000ML 1,000 ML IV SCH (01:18)
[2017-06-26 05:52] LABS: BASO % 0.3 %; BASO ABS # 0.02 K/uL (0-0.2); EOS % 1.9 %; EOS ABS # 0.12 K/uL (0-0.5); HEMATOCRIT 34.1 % (37-47); HEMOGLOBIN 11.6 g/dL (12.0-16.0); IG# 0.03 K/uL (0.00-0.02); LYMPH ABS # 0.99 K/uL (1.2-3.4); MEAN CELL VOLUME 92.9 fL (80-100); MEAN CORPUSCULAR HEMOGLOBIN 31.6 pg (25-34); MEAN PLATELET VOLUME 8.7 fL (7.4-10.4); MONO % 10.2 %; MONO ABS # 0.63 K/uL (0.11-0.59); NEUT % 71.1 %; NEUT ABS # 4.38 K/uL (1.4-6.5); PLATELET COUNT 272 K/uL (130-400); RED CELL DISTRIBUTION WIDTH CV 13.7 % (11.5-14.5); RED CELL DISTRIBUTION WIDTH SD 46.3 fL (36.4-46.3); WHITE BLOOD COUNT 6.17 K/uL (4.8-10.8)
[2017-06-26 06:27] LABS: CALCIUM 8.1 mg/dl (8.5-10.1); CREATININE 0.5 mg/dl (0.60-1.20); POTASSIUM 3.3 mmol/L (3.5-5.1)
[2017-06-26] MEDS: LEVOTHYROXINE 25 MCG TAB PO SCH (06:41)
[2017-06-26 07:39] VITALS: BP 111/67; PULSE 80; TEMP 36.9; O2SAT 91
--- NOTE | 2017-06-26 08:27 | Progress Note ---
Medicine Progress Note Date & Time of Visit: Jun 26, 2017 at 08:00 . Subjective CC: Follow-up visit for altered mental status and other problems. HPI: Doing well. No fever. No chest pain. Occasional nonproductive cough; no SOB. No nausea, vomiting, diarrhea. No dysuria. ROS: as noted above in HPI . Objective Last 8 Hrs Date Time Temp Pulse Resp B/P (MAP) Pulse Ox O2 Delivery O2 Flow Rate FiO2 06/26/17 07:39 36.9 80 18 111/67 (82) 91 Room Air 06/26/17 00:35 Room Air Physical Exam: General- lying in bed; o distress Lungs- clear to auscultation; no respiratory distress Cardiovascular- RRR; no gallop; no JVD; no pretibial edema Abdomen- + bowel sounds, soft, nontender Extremities- no cyanosis; no calf tenderness Neuro- alert; slow mentation; some difficulty with word finding Skin- warm & dry . Laboratory Results: Last 24 Hours Test 06/26/17 05:19 White Blood Count 6.17 K/uL Red Blood Count 3.67 M/uL Hemoglobin 11.6 g/dL Hematocrit 34.1 % Mean Corpuscular Volume 92.9 fL Mean Corpuscular Hemoglobin 31.6 pg Mean Corpuscular Hemoglobin Concent 34.0 g/dl Platelet Count 272 K/uL Mean Platelet Volume 8.7 fL Neutrophils (%) (Auto) 71.1 % Lymphocytes (%) (Auto) 16.0 % Monocytes (%) (Auto) 10.2 % Eosinophils (%) (Auto) 1.9 % Basophils (%) (Auto) 0.3 % Neutrophils # (Auto) 4.38 K/uL Lymphocytes # (Auto) 0.99 K/uL Monocytes # (Auto) 0.63 K/uL Eosinophils # (Auto) 0.12 K/uL Basophils # (Auto) 0.02 K/uL RDW Standard Deviation 46.3 fL RDW Coefficient of Variation 13.7 % Immature Granulocyte % (Auto) 0.5 % Immature Granulocyte # (Auto) 0.03 K/uL Sodium Level 132 mmol/L Potassium Level 3.3 mmol/L Chloride Level 103 mmol/L Carbon Dioxide Level 24 mmol/L Anion Gap 5.0 mmol/L Blood Urea Nitrogen 13 mg/dl Creatinine 0.50 mg/dl Est Creatinine Clear Calc Drug Dose 111.7 ml/min Estimated GFR () 118.5 Estimated GFR (Non- 102.3 BUN/Creatinine Ratio 26.4 Random Glucose 97 mg/dl Calcium Level 8.1 mg/dl Magnesium Level 1.6 mg/dl Valproic Acid (Depakene) Level 71 mcg/ml Assessment & Plan ALTERED MENTAL STATUS Head CT showed chronic changes. Probable encephalopathy secondary to UTI. Dr. Bustillo saw patient for neuro consult. Neuro status back to baseline. UTI UA showed WBC's, bacteria, epithelial cells. Urine culture obtained at time of admission grew 3 types of organisms, all high counts, repeat culture recommended. Repeat urine culture with catheterized specimen in process; results may be affected by antibiotic therapy. Continue ceftriaxone. SEIZURE DISORDER Continue usual anticonvulsants. HYPONATREMIA Serum sodium at time of admission 135. Serum sodium today = 132. Follow. HYPOKALEMIA Serum potassium at time of admission was 3.9. Serum potassium today = 3.3. Replace. Follow. HYPOMAGNESEMIA Serum magnesium today = 1.6. Replace. Follow. VTE PROPHYLAXIS SQ enoxaparin. DISPOSITION Expected discharge to [facility]. Family Medicine follow-up with Dr. Vaughan. . Current Inpatient Medications: Current Inpatient Medications Medications (Trade) Dose Ordered Sig/Ten Route Start Time Stop Time Status Last Admin Dose Admin Enoxaparin Sodium (Lovenox Inj) 40 mg Q24H SQ 06/23/17 23:00 07/23/17 22:59 06/25/17 21:32 40 MG Acetaminophen (Tylenol Tab) 650 mg Q4H PRN PO 06/23/17 21:30 07/23/17 21:29 Ondansetron HCl (Zofran Inj) 4 mg Q6H PRN IV 06/23/17 21:30 07/23/17 21:29 Sodium Chloride 1,000 ml @ 80 mls/hr [id number] IV 06/23/17 23:00 07/23/17 22:59 06/26/17 01:18 80 MLS/HR Ceftriaxone Sodium 1 gm/ Dextrose 50 ml @ 100 mls/hr Q24H IV 06/24/17 21:00 07/02/17 21:29 06/25/17 21:31 100 MLS/HR Diclofenac Sodium (Voltaren Tab) 75 mg BID PO 2/8/18 08:00 07/24/17 08:59 06/25/17 20:11 75 MG Duloxetine HCl (Cymbalta Cap) 60 mg DAILY PO 06/24/17 08:00 07/24/17 08:59 06/25/17 07:26 60 MG Acetaminophen/ Hydrocodone Bitart ([place] 10/325 Tab) 1 tab BID PRN PO 06/23/17 21:45 07/07/17 21:44 Levothyroxine Sodium (Synthroid Tab) 25 mcg DAILYBB PO 06/24/17 06:30 07/24/17 06:59 06/26/17 06:41 25 MCG Multivitamins (Multivitamin Tab) 1 tab DAILY PO 06/24/17 08:00 07/24/17 08:59 06/25/17 07:25 1 TAB Calcium/Vitamin D (Caltrate Plus Tab) 1 tab BID PO 06/24/17 08:00 07/24/17 08:59 06/25/17 20:09 1 TAB Pantoprazole Sodium (Protonix Tab) 40 mg QAM PO 06/24/17 08:00 07/24/17 08:59 06/25/17 07:25 40 MG Oxybutynin Chloride (Ditropan-Xl Tab) 15 mg DAILY PO 06/24/17 08:00 07/24/17 08:59 06/25/17 07:26 15 MG Polyethylene (Miralax Powder Packet) 17 gm DAILY PRN PO 06/23/17 21:45 07/23/17 21:44 Divalproex Sodium (Depakote Delay Rel Tab) 1,000 mg BID PO 06/24/17 00:45 07/24/17 08:59 06/25/17 20:09 1,000 MG Oxcarbazepine (Trileptal Tab) 600 mg BID PO 06/24/17 00:45 07/24/17 08:59 06/25/17 20:10 600 MG Topiramate (Topamax Tab) 200 mg BID PO 06/24/17 00:45 07/24/17 08:59 06/25/17 20:10 200 MG Topiramate (Topamax Tab) 75 mg BID PO 06/26/17 08:00 07/24/17 08:59 Potassium Chloride (Klor-Con Tab) 20 meq BID PO 06/26/17 08:00 3/12/18 07:59
--- NOTE | 2017-06-26 08:29 | Neurology Progress Notes ---
Neurology Progress Note Date of Service Jun 26, 2017. Subjective The patient has had no seizures. She continues to have some right hip and leg pain, as before with no new symptoms. She has a little bit of a right frontal headache. Chem profile showed a low magnesium of 1.6, low potassium and low sodium as before. CBC showed mild anemia. Depakote level was 71. Topiramate level is pending and oxcarbazepine level was not drawn. Patient still remains on 225 milligrams topiramate twice daily (this is not her usual daily dose which is 275 milligrams twice daily). Objective Date Time Temp Pulse Resp B/P (MAP) Pulse Ox O2 Delivery O2 Flow Rate FiO2 06/26/17 00:35 Room Air 06/25/17 22:24 36.7 95 20 148/87 (107) 99 Room Air 06/25/17 16:00 Room Air 06/25/17 12:39 36.7 88 14 122/80 (94) 98 Room Air 06/25/17 09:59 92 Room Air 06/25/17 09:30 Room Air 06/25/17 08:45 36.5 86 14 122/86 (98) 92 Room Air Last 24 Hours Test 06/26/17 05:19 White Blood Count 6.17 K/uL Red Blood Count 3.67 M/uL Hemoglobin 11.6 g/dL Hematocrit 34.1 % Mean Corpuscular Volume 92.9 fL Mean Corpuscular Hemoglobin 31.6 pg Mean Corpuscular Hemoglobin Concent 34.0 g/dl Platelet Count 272 K/uL Mean Platelet Volume 8.7 fL Neutrophils (%) (Auto) 71.1 % Lymphocytes (%) (Auto) 16.0 % Monocytes (%) (Auto) 10.2 % Eosinophils (%) (Auto) 1.9 % Basophils (%) (Auto) 0.3 % Neutrophils # (Auto) 4.38 K/uL Lymphocytes # (Auto) 0.99 K/uL Monocytes # (Auto) 0.63 K/uL Eosinophils # (Auto) 0.12 K/uL Basophils # (Auto) 0.02 K/uL RDW Standard Deviation 46.3 fL RDW Coefficient of Variation 13.7 % Immature Granulocyte % (Auto) 0.5 % Immature Granulocyte # (Auto) 0.03 K/uL Sodium Level 132 mmol/L Potassium Level 3.3 mmol/L Chloride Level 103 mmol/L Carbon Dioxide Level 24 mmol/L Anion Gap 5.0 mmol/L Blood Urea Nitrogen 13 mg/dl Creatinine 0.50 mg/dl Est Creatinine Clear Calc Drug Dose 111.7 ml/min Estimated GFR () 118.5 Estimated GFR (Non- 102.3 BUN/Creatinine Ratio 26.4 Random Glucose 97 mg/dl Calcium Level 8.1 mg/dl Magnesium Level 1.6 mg/dl Valproic Acid (Depakene) Level 71 mcg/ml Exam: She is awake and alert. Speech is without aphasia or dysarthria. Mood is good and affect is appropriate. Extraocular eye muscles are intact without nystagmus. There is no facial droop. She is walking tentatively but with the assistance of 1, fairly well. Strength is symmetrical in all limbs. Coordination is normal without abnormal involuntary movements. Current Inpatient Medications Medications (Trade) Dose Ordered Sig/Ten Route Start Time Stop Time Status Last Admin Dose Admin Enoxaparin Sodium (Lovenox Inj) 40 mg Q24H SQ 06/23/17 23:00 07/23/17 22:59 06/25/17 21:32 40 MG Acetaminophen (Tylenol Tab) 650 mg Q4H PRN PO 06/23/17 21:30 07/23/17 21:29 Ondansetron HCl (Zofran Inj) 4 mg Q6H PRN IV 06/23/17 21:30 07/23/17 21:29 Sodium Chloride 1,000 ml @ 80 mls/hr [id number] IV 06/23/17 23:00 07/23/17 22:59 06/26/17 01:18 80 MLS/HR Ceftriaxone Sodium 1 gm/ Dextrose 50 ml @ 100 mls/hr Q24H IV 06/24/17 21:00 07/02/17 21:29 06/25/17 21:31 100 MLS/HR Diclofenac Sodium (Voltaren Tab) 75 mg BID PO 06/24/17 08:00 07/24/17 08:59 06/25/17 20:11 75 MG Duloxetine HCl (Cymbalta Cap) 60 mg DAILY PO 06/24/17 08:00 07/24/17 08:59 06/25/17 07:26 60 MG Acetaminophen/ Hydrocodone Bitart ([place] 10/325 Tab) 1 tab BID PRN PO 06/23/17 21:45 07/07/17 21:44 Levothyroxine Sodium (Synthroid Tab) 25 mcg DAILYBB PO 06/24/17 06:30 07/24/17 06:59 06/26/17 06:41 25 MCG Multivitamins (Multivitamin Tab) 1 tab DAILY PO 06/24/17 08:00 07/24/17 08:59 06/25/17 07:25 1 TAB Calcium/Vitamin D (Caltrate Plus Tab) 1 tab BID PO 06/24/17 08:00 07/24/17 08:59 06/25/17 20:09 1 TAB Pantoprazole Sodium (Protonix Tab) 40 mg QAM PO 06/24/17 08:00 07/24/17 08:59 06/25/17 07:25 40 MG Oxybutynin Chloride (Ditropan-Xl Tab) 15 mg DAILY PO 06/24/17 08:00 07/24/17 08:59 06/25/17 07:26 15 MG Polyethylene (Miralax Powder Packet) 17 gm DAILY PRN PO 06/23/17 21:45 07/23/17 21:44 Divalproex Sodium (Depakote Delay Rel Tab) 1,000 mg BID PO 06/24/17 00:45 07/24/17 08:59 06/25/17 20:09 1,000 MG Oxcarbazepine (Trileptal Tab) 600 mg BID PO 06/24/17 00:45 07/24/17 08:59 06/25/17 20:10 600 MG Topiramate (Topamax Tab) 25 mg BID PO 06/24/17 00:45 07/24/17 08:59 06/25/17 20:10 25 MG Topiramate (Topamax Tab) 200 mg BID PO 06/24/17 00:45 07/24/17 08:59 06/25/17 20:10 200 MG Impression 1. Longstanding epilepsy, complex partial, with secondary generalization. She has tried multiple treatments including most anticonvulsant medications and has even had left temporal lobectomy in an effort to control seizures which did not help. She has been fairly stable on her current medications (more than I have ever seen her ) with her last known seizure in May of 2016 She tolerates medications well but has been known to be noncompliant recently because of her dementia and is not taking care of herself well 2. Acute encephalopathy June 23. The etiology is unknown but it is most likely postictal, from a seizure, from medication noncompliance She may have had a urinary tract infection has been treated successfully with antibiotics. She did not seem to have any significant electrolyte or other infectious etiology and her medications have not changed. It is possible she may have overdosed but her Depakote level was on the low end of normal at 69. Hypertension can given encephalopathy but it really was not that high on admission. 3. 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 This is stable 4. Essential tremor, chronic and stable 5. Hypertension on admission, improved since in the hospital. 6. History of depression, improved and stable on Cymbalta 7. Mild hyponatremia, likely secondary to oxcarbazepine, and this is a chronic issue. Plan 1. I added a trough oxcarbazepine level to the morning labs. Topiramate level is pending. 2. Keep on Depakote 1000 milligrams twice daily and oxcarbazepine 600 milligrams twice daily 3. I changed topiramate to her correct outpatient dosage of 275 milligrams twice daily 4. I do not see a need for an EEG, as this will not change our treatment plan. I see no need for any other additional neurologic tests. 5. I agree that this patient should not be living on her own anymore and needs more constant supervision for her medications and daily care. She will be transferred to [facility] I follow this patient as an outpatient. I would like to see her in the next 1- 2 weeks after discharge. Please contact me if I can be of further assistance on this case.
[2017-06-26] MEDS: CALCIUM 600MG + VIT D 400 IU TAB PO SCH ×2 (08:52→19:59)
[2017-06-26] MEDS: DULOXETINE HCL 60 MG CAP PO SCH (08:52)
[2017-06-26] MEDS: TOPIRAMATE 100 MG TAB PO SCH ×2 (08:53→20:01)
[2017-06-26] MEDS: MULTIVITAMIN TAB PO SCH (08:53)
[2017-06-26] MEDS: OXYBUTYNIN CHLORIDE 5 MG TABCR PO SCH (08:53)
[2017-06-26] MEDS: OXCARBAZEPINE 150 MG TAB PO SCH ×2 (08:54→20:03)
[2017-06-26] MEDS: DIVALPROEX SODIUM 500 MG DELAY RELEASE TAB PO SCH ×2 (08:54→20:00)
[2017-06-26] MEDS: DICLOFENAC SOD EC 75 MG TABCR PO SCH ×2 (08:54→20:04)
[2017-06-26] MEDS: PANTOprazole SOD 40 MG TAB PO SCH (08:54)
[2017-06-26] MEDS: POTASSIUM CHLORIDE 20 MEQ TABCR PO SCH ×2 (08:58→20:00)
[2017-06-26] MEDS: TOPIRAMATE 25 MG TAB PO SCH ×2 (08:58→20:02)
[2017-06-26 09:00] VITALS: O2SAT 91
[2017-06-26] MEDS ORDERED: MAGNESIUM OXIDE 400 MG TAB PO ONE (09:00)
[2017-06-26 15:13] VITALS: BP 98/69; PULSE 84; TEMP 37.1; O2SAT 96
[2017-06-26] MEDS: MAGNESIUM OXIDE 400 MG TAB PO SCH (20:01)
[2017-06-26] MEDS: CEFTRIAXONE SOD INJ 1 GM in DEXTROSE 5% ADD-VANTAGE 50ML 50 ML IV SCH (20:04)
[2017-06-26] MEDS: HYDROCODONE/ACETAMI 10/325 TAB PO PRN (20:06)
[2017-06-26] MEDS: ENOXAPARIN 40 MG/0.4 ML SYR SQ SCH (21:18)
[2017-06-27] VITALS (10 sets, daily range): BP systolic 91–161; BP diastolic 59–80; PULSE 54–104; TEMP 36.3–39.2; O2SAT 96–98
[2017-06-27 06:30] LABS: CREATININE 0.7 mg/dl (0.60-1.20); POTASSIUM 3.4 mmol/L (3.5-5.1)
[2017-06-27] MEDS: LEVOTHYROXINE 25 MCG TAB PO SCH (06:31)
[2017-06-27] MEDS: ACETAMINOPHEN 325 MG TAB PO PRN ×2 (06:43→18:32)
--- NOTE | 2017-06-27 07:23 | DIAGNOSTIC IMAGING REPORT ---
CHEST ONE VIEW PORTABLE CLINICAL HISTORY: fever, hypoxia dyspnea COMPARISON STUDY: 06/23/2017 FINDINGS: Chronic pleural and parenchymal change left lung base. No acute infiltrate. Right hemidiaphragm is smooth. No significant cardiac enlargement. IMPRESSION: Chronic change. No acute process. No change from the prior exam. The above report was generated using voice recognition software. It may contain grammatical, syntax or spelling errors. Electronically signed by: Neto Crowell M.D. 06/27/2017 7:22 AM Dictated Date/Time: 06/27/2017 7:21 AM
[2017-06-27] MEDS: TOPIRAMATE 25 MG TAB PO SCH ×2 (07:40→19:55)
[2017-06-27] MEDS: MULTIVITAMIN TAB PO SCH (07:40)
[2017-06-27] MEDS: HYDROCODONE/ACETAMI 10/325 TAB PO PRN (07:40)
[2017-06-27] MEDS: TOPIRAMATE 100 MG TAB PO SCH ×2 (07:40→19:56)
[2017-06-27] MEDS: OXYBUTYNIN CHLORIDE 5 MG TABCR PO SCH (07:40)
[2017-06-27] MEDS: CALCIUM 600MG + VIT D 400 IU TAB PO SCH ×2 (07:40→19:56)
[2017-06-27] MEDS: OXCARBAZEPINE 150 MG TAB PO SCH ×2 (07:40→19:57)
[2017-06-27] MEDS: DIVALPROEX SODIUM 500 MG DELAY RELEASE TAB PO SCH ×2 (07:41→20:00)
[2017-06-27] MEDS: DULOXETINE HCL 60 MG CAP PO SCH (07:41)
[2017-06-27] MEDS: DICLOFENAC SOD EC 75 MG TABCR PO SCH ×2 (07:41→20:02)
[2017-06-27] MEDS: POTASSIUM CHLORIDE 20 MEQ TABCR PO SCH ×2 (07:41→19:57)
[2017-06-27] MEDS: MAGNESIUM OXIDE 400 MG TAB PO SCH ×2 (07:41→20:01)
[2017-06-27] MEDS: PANTOprazole SOD 40 MG TAB PO SCH (07:42)
[2017-06-27] MEDS: POTASSIUM CHLORIDE INJ 40 MEQ in SODIUM CHLORIDE 0.9% 1000ML 1,000 ML IV SCH ×3 (09:21→23:54)
[2017-06-27 09:54] LABS: INFLUENZA B PCR Neg for Influ B (NEG)
[2017-06-27 09:55] LABS: INFLUENZA A PCR POS for Influ A (NEG)
[2017-06-27] MEDS ORDERED: OSELTAMIVIR PHOSPHATE 75 MG CAP PO STA (10:51)
[2017-06-27] MEDS: CEFTRIAXONE SOD INJ 1 GM in DEXTROSE 5% ADD-VANTAGE 50ML 50 ML IV SCH (19:54)
[2017-06-27] MEDS: OSELTAMIVIR PHOSPHATE 75 MG CAP PO SCH (20:01)
[2017-06-27] MEDS: ENOXAPARIN 40 MG/0.4 ML SYR SQ SCH (20:02)
--- NOTE | 2017-06-27 20:18 | Progress Note ---
Medicine Progress Note Date & Time of Visit: Jun 27, 2017 at 10:30 . Subjective CC: Follow-up visit for altered mental status and other problems. HPI: Developed fever and worsening cough this morning. Cough nonproductive. No chest pain. No SOB. No nausea, vomiting, diarrhea. No dysuria. ROS: as noted above in HPI . Objective Last 8 Hrs Date Time Temp Pulse Resp B/P (MAP) Pulse Ox O2 Delivery O2 Flow Rate FiO2 06/27/17 16:00 97 Room Air 06/27/17 15:15 36.3 103 18 91/59 (70) 97 Room Air Physical Exam: General- lying in bed; no distress Lungs- scattered rhonchi, no wheezing; no respiratory distress Cardiovascular- RRR; no gallop; no JVD; no pretibial edema Abdomen- + bowel sounds, soft, nontender Extremities- no cyanosis; no calf tenderness Neuro- alert; slow mentation Skin- warm & dry . Laboratory Results: Last 24 Hours Test 06/27/17 05:25 06/27/17 08:10 Sodium Level 132 mmol/L Potassium Level 3.4 mmol/L Chloride Level 100 mmol/L Carbon Dioxide Level 23 mmol/L Anion Gap 9.0 mmol/L Blood Urea Nitrogen 12 mg/dl Creatinine 0.70 mg/dl Est Creatinine Clear Calc Drug Dose 79.8 ml/min Estimated GFR () 106.1 Estimated GFR (Non- 91.6 BUN/Creatinine Ratio 17.6 Random Glucose 91 mg/dl Calcium Level 8.0 mg/dl Magnesium Level 1.9 mg/dl Influenza Type A (RT-PCR) POS for Influ A Influenza Type B (RT-PCR) Neg for Influ B Date/Time Source Procedure Growth Status 06/27/17 07:21 Blood Blood Culture Pending Received 06/27/17 07:15 Blood Blood Culture Pending Received Assessment & Plan ALTERED MENTAL STATUS Head CT showed chronic changes. Probable encephalopathy secondary to UTI. Dr. Bustillo saw patient for neuro consult. Neuro status back to baseline. UTI UA showed WBC's, bacteria, epithelial cells. Urine culture obtained at time of admission grew 3 types of organisms, all high counts, repeat culture recommended. Repeat urine culture with catheterized specimen in process; results may be affected by antibiotic therapy. Continue ceftriaxone. INFLUENZA Fever and cough this morning. No infiltrates on chest x-ray. [employer] swab for influenza A positive. Started on oseltamivir. SEIZURE DISORDER Continue usual anticonvulsants. HYPONATREMIA Serum sodium at time of admission 135. Serum sodium today = 132. Follow. HYPOKALEMIA Serum potassium at time of admission was 3.9. Serum potassium today = 3.4. Replace. Follow. HYPOMAGNESEMIA Serum magnesium as low as1.6. Receiving replacement. Mg today 1.9. Follow. VTE PROPHYLAXIS SQ enoxaparin. DISPOSITION Expected discharge to [facility]. Family Medicine follow-up with Dr. Vaughan. . Current Inpatient Medications: Current Inpatient Medications Medications (Trade) Dose Ordered Sig/Ten Route Start Time Stop Time Status Last Admin Dose Admin Enoxaparin Sodium (Lovenox Inj) 40 mg Q24H SQ 06/23/17 23:00 07/23/17 22:59 06/26/17 21:18 40 MG Acetaminophen (Tylenol Tab) 650 mg Q4H PRN PO 06/23/17 21:30 07/23/17 21:29 06/27/17 18:32 650 MG Ondansetron HCl (Zofran Inj) 4 mg Q6H PRN IV 06/23/17 21:30 07/23/17 21:29 Ceftriaxone Sodium 1 gm/ Dextrose 50 ml @ 100 mls/hr Q24H IV 06/24/17 21:00 07/02/17 21:29 06/26/17 20:04 100 MLS/HR Diclofenac Sodium (Voltaren Tab) 75 mg BID PO 06/24/17 08:00 07/24/17 08:59 06/27/17 07:41 75 MG Duloxetine HCl (Cymbalta Cap) 60 mg DAILY PO 06/24/17 08:00 07/24/17 08:59 06/27/17 07:41 60 MG Acetaminophen/ Hydrocodone Bitart ([place] 10/325 Tab) 1 tab BID PRN PO 06/23/17 21:45 07/07/17 21:44 06/27/17 07:40 1 TAB Levothyroxine Sodium (Synthroid Tab) 25 mcg DAILYBB PO 06/24/17 06:30 07/24/17 06:59 06/27/17 06:31 25 MCG Multivitamins (Multivitamin Tab) 1 tab DAILY PO 06/24/17 08:00 07/24/17 08:59 06/27/17 07:40 1 TAB Calcium/Vitamin D (Caltrate Plus Tab) 1 tab BID PO 06/24/17 08:00 07/24/17 08:59 06/27/17 07:40 1 TAB Pantoprazole Sodium (Protonix Tab) 40 mg QAM PO 06/24/17 08:00 07/24/17 08:59 06/27/17 07:42 40 MG Oxybutynin Chloride (Ditropan-Xl Tab) 15 mg DAILY PO 06/24/17 08:00 07/24/17 08:59 06/27/17 07:40 15 MG Polyethylene (Miralax Powder Packet) 17 gm DAILY PRN PO 06/23/17 21:45 07/23/17 21:44 Divalproex Sodium (Depakote Delay Rel Tab) 1,000 mg BID PO 06/24/17 00:45 07/24/17 08:59 06/27/17 07:41 1,000 MG Oxcarbazepine (Trileptal Tab) 600 mg BID PO 06/24/17 00:45 07/24/17 08:59 06/27/17 07:40 600 MG Topiramate (Topamax Tab) 200 mg BID PO 06/24/17 00:45 07/24/17 08:59 06/27/17 07:40 200 MG Topiramate (Topamax Tab) 75 mg BID PO 06/26/17 08:00 07/24/17 08:59 06/27/17 07:40 75 MG Potassium Chloride (Klor-Con Tab) 20 meq BID PO 06/26/17 08:00 07/26/17 07:59 06/27/17 07:41 20 MEQ Magnesium Oxide (Mag-Ox Tab) 400 mg BID PO 06/26/17 20:00 07/26/17 19:59 06/27/17 07:41 400 MG Potassium Chloride 40 meq/ Sodium Chloride 1,020 ml @ 125 mls/hr Q8H10M IV 06/27/17 07:30 07/27/17 07:29 06/27/17 16:03 125 MLS/HR Oseltamivir Phosphate (Tamiflu Cap) 75 mg BID PO 06/27/17 20:00 07/02/17 19:59
[2017-06-27] MEDS ORDERED: COUGH DROP (SUGAR FREE) LOZ 24 LOZ/1 BOX LOZ PRN (21:45)
[2017-06-27] MEDS: CHLORASEPTIC 1.4% SOLN 180 ML BTL MT PRN (22:41)
[2017-06-28] MEDS: LEVOTHYROXINE 25 MCG TAB PO SCH (05:44)
[2017-06-28 06:45] LABS: CALCIUM 7.3 mg/dl (8.5-10.1); CREATININE 0.54 mg/dl (0.60-1.20); POTASSIUM 4.3 mmol/L (3.5-5.1)
[2017-06-28 07:57] VITALS: BP 122/76; PULSE 64; TEMP 36.5; O2SAT 96
[2017-06-28] MEDS: OXYBUTYNIN CHLORIDE 5 MG TABCR PO SCH (08:22)
[2017-06-28] MEDS: DIVALPROEX SODIUM 500 MG DELAY RELEASE TAB PO SCH ×2 (08:22→19:51)
[2017-06-28] MEDS: POTASSIUM CHLORIDE INJ 40 MEQ in SODIUM CHLORIDE 0.9% 1000ML 1,000 ML IV SCH ×2 (08:22→16:53)
[2017-06-28] MEDS: DULOXETINE HCL 60 MG CAP PO SCH (08:22)
[2017-06-28] MEDS: CALCIUM 600MG + VIT D 400 IU TAB PO SCH ×2 (08:22→19:51)
[2017-06-28] MEDS: MULTIVITAMIN TAB PO SCH (08:23)
[2017-06-28] MEDS: PANTOprazole SOD 40 MG TAB PO SCH (08:23)
[2017-06-28] MEDS: TOPIRAMATE 100 MG TAB PO SCH ×2 (08:23→19:52)
[2017-06-28] MEDS: OSELTAMIVIR PHOSPHATE 75 MG CAP PO SCH ×2 (08:23→19:51)
[2017-06-28] MEDS: POTASSIUM CHLORIDE 20 MEQ TABCR PO SCH ×2 (08:23→20:00)
[2017-06-28] MEDS: TOPIRAMATE 25 MG TAB PO SCH ×2 (08:23→19:52)
[2017-06-28] MEDS: MAGNESIUM OXIDE 400 MG TAB PO SCH ×2 (08:23→19:51)
[2017-06-28] MEDS: DICLOFENAC SOD EC 75 MG TABCR PO SCH ×2 (08:24→19:53)
[2017-06-28] MEDS: OXCARBAZEPINE 150 MG TAB PO SCH ×2 (08:24→19:54)
[2017-06-28 08:39] VITALS: O2SAT 96
[2017-06-28 15:50] VITALS: BP 111/73; PULSE 75; TEMP 36.7; O2SAT 100
[2017-06-28] MEDS: CHLORASEPTIC 1.4% SOLN 180 ML BTL MT PRN ×2 (18:49→23:51)
--- NOTE | 2017-06-28 19:31 | Progress Note ---
Medicine Progress Note Date & Time of Visit: Jun 28, 2017 at 09:40 . Subjective CC: Follow-up visit for altered mental status and other problems. HPI: No fever since yesterday. Persistent cough, nonproductive. No chest pain. No SOB. No nausea, vomiting, diarrhea. No dysuria. ROS: as noted above in HPI . Objective Last 8 Hrs Date Time Temp Pulse Resp B/P (MAP) Pulse Ox O2 Delivery O2 Flow Rate FiO2 06/28/17 15:50 36.7 75 22 111/73 (86) 100 Room Air 06/28/17 11:38 Room Air Physical Exam: General- sitting in chair; no distress Lungs- scattered rhonchi, diffuse mild wheezing; no respiratory distress Cardiovascular- RRR; no gallop; no JVD; no pretibial edema Abdomen- + bowel sounds, soft, nontender Extremities- no cyanosis; no calf tenderness Neuro- alert; slow mentation Skin- warm & dry . Laboratory Results: Last 24 Hours Test 06/28/17 05:41 Sodium Level 134 mmol/L Potassium Level 4.3 mmol/L Chloride Level 107 mmol/L Carbon Dioxide Level 20 mmol/L Anion Gap 7.0 mmol/L Blood Urea Nitrogen 14 mg/dl Creatinine 0.54 mg/dl Est Creatinine Clear Calc Drug Dose 103.4 ml/min Estimated GFR () 115.6 Estimated GFR (Non- 99.7 BUN/Creatinine Ratio 25.6 Random Glucose 88 mg/dl Calcium Level 7.3 mg/dl Assessment & Plan ALTERED MENTAL STATUS Head CT showed chronic changes. Probable encephalopathy secondary to UTI. Dr. Bustillo saw patient for neuro consult. Neuro status back to baseline. UTI UA showed WBC's, bacteria, epithelial cells. Urine culture obtained at time of admission grew 3 types of organisms, all high counts, repeat culture recommended. Repeat urine culture with catheterized specimen in process; results may be affected by antibiotic therapy. Continue ceftriaxone. INFLUENZA Fever and cough morning of 06/27. No infiltrates on chest x-ray. [employer] swab for influenza A positive. Started on oseltamivir. SEIZURE DISORDER Continue usual anticonvulsants. HYPONATREMIA Serum sodium at time of admission 135, fell as low as 134. Serum sodium today = 134. Follow. HYPOKALEMIA Serum potassium at time of admission was 3.9, fell as low as 3.3. Receiving replacement. Serum potassium today = 4.3. Follow. HYPOMAGNESEMIA Serum magnesium as low as1.6. Receiving replacement. Mg yesterday 1.9. Follow. VTE PROPHYLAXIS SQ enoxaparin. DISPOSITION Expected discharge to [facility]. Family Medicine follow-up with Dr. Vaughan. . Current Inpatient Medications: Current Inpatient Medications Medications (Trade) Dose Ordered Sig/Ten Route Start Time Stop Time Status Last Admin Dose Admin Enoxaparin Sodium (Lovenox Inj) 40 mg Q24H SQ 06/23/17 23:00 07/23/17 22:59 06/27/17 20:02 40 MG Acetaminophen (Tylenol Tab) 650 mg Q4H PRN PO 06/23/17 21:30 07/23/17 21:29 06/27/17 18:32 650 MG Ondansetron HCl (Zofran Inj) 4 mg Q6H PRN IV 06/23/17 21:30 07/23/17 21:29 Ceftriaxone Sodium 1 gm/ Dextrose 50 ml @ 100 mls/hr Q24H IV 06/24/17 21:00 07/02/17 21:29 06/27/17 19:54 100 MLS/HR Diclofenac Sodium (Voltaren Tab) 75 mg BID PO 06/24/17 08:00 07/24/17 08:59 06/28/17 08:24 75 MG Duloxetine HCl (Cymbalta Cap) 60 mg DAILY PO 06/24/17 08:00 07/24/17 08:59 06/28/17 08:22 60 MG Acetaminophen/ Hydrocodone Bitart ([place] 10/325 Tab) 1 tab BID PRN PO 06/23/17 21:45 07/07/17 21:44 06/27/17 07:40 1 TAB Levothyroxine Sodium (Synthroid Tab) 25 mcg DAILYBB PO 06/24/17 06:30 07/24/17 06:59 06/28/17 05:44 25 MCG Multivitamins (Multivitamin Tab) 1 tab DAILY PO 06/24/17 08:00 07/24/17 08:59 06/28/17 08:23 1 TAB Calcium/Vitamin D (Caltrate Plus Tab) 1 tab BID PO 06/24/17 08:00 07/24/17 08:59 06/28/17 08:22 1 TAB Pantoprazole Sodium (Protonix Tab) 40 mg QAM PO 06/24/17 08:00 07/24/17 08:59 06/28/17 08:23 40 MG Oxybutynin Chloride (Ditropan-Xl Tab) 15 mg DAILY PO 06/24/17 08:00 07/24/17 08:59 06/28/17 08:22 15 MG Polyethylene (Miralax Powder Packet) 17 gm DAILY PRN PO 06/23/17 21:45 07/23/17 21:44 Divalproex Sodium (Depakote Delay Rel Tab) 1,000 mg BID PO 06/24/17 00:45 07/24/17 08:59 06/28/17 08:22 1,000 MG Oxcarbazepine (Trileptal Tab) 600 mg BID PO 06/24/17 00:45 07/24/17 08:59 06/28/17 08:24 600 MG Topiramate (Topamax Tab) 200 mg BID PO 06/24/17 00:45 07/24/17 08:59 06/28/17 08:23 200 MG Topiramate (Topamax Tab) 75 mg BID PO 06/26/17 08:00 07/24/17 08:59 06/28/17 08:23 75 MG Potassium Chloride (Klor-Con Tab) 20 meq BID PO 06/26/17 08:00 07/26/17 07:59 06/28/17 08:23 20 MEQ Magnesium Oxide (Mag-Ox Tab) 400 mg BID PO 06/26/17 20:00 07/26/17 19:59 06/28/17 08:23 400 MG Potassium Chloride 40 meq/ Sodium Chloride 1,020 ml @ 125 mls/hr Q8H10M IV 06/27/17 07:30 07/27/17 07:29 06/28/17 16:53 125 MLS/HR Oseltamivir Phosphate (Tamiflu Cap) 75 mg BID PO 06/27/17 20:00 07/02/17 19:59 06/28/17 08:23 75 MG Menthol ([place]) 1 spring Q1H PRN [place] 06/27/17 21:45 07/27/17 21:44 Phenol (Chloraseptic 1.4% [place]) 2 sprays Q2H PRN [place] 2/11/18 21:45 07/27/17 21:44 06/28/17 18:49 2 SPRAYS
[2017-06-28] MEDS ORDERED: SODIUM CHLORIDE 0.9% 1000ML 1,000 ML IV SCH (21:15)
[2017-06-28] MEDS: CEFTRIAXONE SOD INJ 1 GM in DEXTROSE 5% ADD-VANTAGE 50ML 50 ML IV SCH (21:32)
[2017-06-28] MEDS: ENOXAPARIN 40 MG/0.4 ML SYR SQ SCH (23:37)
[2017-06-29 01:23] VITALS: BP 137/80; PULSE 73; TEMP 36.6; O2SAT 96
[2017-06-29] MEDS: LEVOTHYROXINE 25 MCG TAB PO SCH (06:34)
[2017-06-29 07:31] VITALS: BP 119/75; PULSE 70; TEMP 36.7; O2SAT 94
[2017-06-29] MEDS: CALCIUM 600MG + VIT D 400 IU TAB PO SCH ×2 (09:14→21:14)
[2017-06-29] MEDS: DULOXETINE HCL 60 MG CAP PO SCH (09:15)
[2017-06-29] MEDS: OXYBUTYNIN CHLORIDE 5 MG TABCR PO SCH (09:16)
[2017-06-29] MEDS: DIVALPROEX SODIUM 500 MG DELAY RELEASE TAB PO SCH ×2 (09:16→21:16)
[2017-06-29] MEDS: MAGNESIUM OXIDE 400 MG TAB PO SCH ×2 (09:17→21:17)
[2017-06-29] MEDS: POTASSIUM CHLORIDE 20 MEQ TABCR PO SCH (09:17)
[2017-06-29] MEDS: OSELTAMIVIR PHOSPHATE 75 MG CAP PO SCH ×2 (09:18→21:18)
[2017-06-29] MEDS: PANTOprazole SOD 40 MG TAB PO SCH (09:18)
[2017-06-29] MEDS: MULTIVITAMIN TAB PO SCH (09:18)
[2017-06-29] MEDS: TOPIRAMATE 100 MG TAB PO SCH ×2 (09:19→21:15)
[2017-06-29] MEDS: OXCARBAZEPINE 150 MG TAB PO SCH ×2 (09:20→21:18)
[2017-06-29] MEDS: TOPIRAMATE 25 MG TAB PO SCH ×2 (09:20→21:17)
[2017-06-29] MEDS: DICLOFENAC SOD EC 75 MG TABCR PO SCH ×2 (09:21→21:14)
[2017-06-29 09:54] VITALS: O2SAT 94
[2017-06-29 15:09] VITALS: BP 135/88; PULSE 77; TEMP 36.8; O2SAT 96
--- NOTE | 2017-06-29 18:09 | Progress Note ---
Medicine Progress Note Date & Time of Visit: Jun 29, 2017 at 17:52. Subjective Pt was seen and examined Lying in bed with no distress Pt said that she feels much better She said that she continue to cough Denies an chest pain, palpitation, dizziness and SOB Objective Last 8 Hrs Date Time Temp Pulse Resp B/P (MAP) Pulse Ox O2 Delivery O2 Flow Rate FiO2 06/29/17 17:41 Room Air 06/29/17 15:09 36.8 77 16 135/88 (104) 96 Room Air 06/29/17 09:54 94 Room Air Physical Exam: General- No acute distress Head- atraumatic Eyes- PERRL, EOMI ENT- oropharynx clear Neck- supple, no JVD Lungs- +wheezing Heart- regular rhythm Abdomen- normal bowel sounds, soft Extremities- no calf tenderness Neuro- alert, oriented, PERRL, EOMI; no facial palsy Skin- warm & dry Assessment & Plan ALTERED MENTAL STATUS Possible related to UTI vs Seizure CT head on admission showed no acute intracranial abnormality. Neuro was consulted Dr. Bustillo Resolved UTI UA was positive for leukocytes, nitrite and bacteria Urine cx was contaminated repeat urine cx showed no growth, mostly result affected since pt has been on an abx. Will complete ceftriaxone course after tonight dose. INFLUENZA Positive influenza A CXR showed no infiltrate continue oseltamivir to complete 5 days course SEIZURE DISORDER Continue usual anticonvulsants. Follow up with neurology btw 1 to 2 weeks HYPONATREMIA Serum sodium 134. Continue monitor HYPOKALEMIA Serum potassium 4.3. Continue monitor BMP HYPOMAGNESEMIA Stable Continue monitor Mg level VTE PROPHYLAXIS SQ enoxaparin. DISPOSITION Expected discharge to [facility] tomorrow [facility] Medicine follow-up with Dr. Vaughan. Current Inpatient Medications: Current Inpatient Medications Medications (Trade) Dose Ordered Sig/Ten Route Start Time Stop Time Status Last Admin Dose Admin Enoxaparin Sodium (Lovenox Inj) 40 mg Q24H SQ 06/23/17 23:00 07/23/17 22:59 06/28/17 23:37 40 MG Acetaminophen (Tylenol Tab) 650 mg Q4H PRN PO 06/23/17 21:30 07/23/17 21:29 06/27/17 18:32 650 MG Ondansetron HCl (Zofran Inj) 4 mg Q6H PRN IV 06/23/17 21:30 07/23/17 21:29 Ceftriaxone Sodium 1 gm/ Dextrose 50 ml @ 100 mls/hr Q24H IV 06/24/17 21:00 07/02/17 21:29 06/28/17 21:32 100 MLS/HR Diclofenac Sodium (Voltaren Tab) 75 mg BID PO 06/24/17 08:00 07/24/17 08:59 06/29/17 09:21 75 MG Duloxetine HCl (Cymbalta Cap) 60 mg DAILY PO 06/24/17 08:00 07/24/17 08:59 06/29/17 09:15 60 MG Acetaminophen/ Hydrocodone Bitart ([place] 10/325 Tab) 1 tab BID PRN PO 06/23/17 21:45 07/07/17 21:44 06/27/17 07:40 1 TAB Levothyroxine Sodium (Synthroid Tab) 25 mcg DAILYBB PO 06/24/17 06:30 07/24/17 06:59 06/29/17 06:34 25 MCG Multivitamins (Multivitamin Tab) 1 tab DAILY PO 06/24/17 08:00 07/24/17 08:59 06/29/17 09:18 1 TAB Calcium/Vitamin D (Caltrate Plus Tab) 1 tab BID PO 06/24/17 08:00 07/24/17 08:59 06/29/17 09:14 1 TAB Pantoprazole Sodium (Protonix Tab) 40 mg QAM PO 06/24/17 08:00 07/24/17 08:59 06/29/17 09:18 40 MG Oxybutynin Chloride (Ditropan-Xl Tab) 15 mg DAILY PO 06/24/17 08:00 07/24/17 08:59 06/29/17 09:16 15 MG Polyethylene (Miralax Powder Packet) 17 gm DAILY PRN PO 06/23/17 21:45 07/23/17 21:44 Divalproex Sodium (Depakote Delay Rel Tab) 1,000 mg BID PO 06/24/17 00:45 07/24/17 08:59 06/29/17 09:16 1,000 MG Oxcarbazepine (Trileptal Tab) 600 mg BID PO 06/24/17 00:45 07/24/17 08:59 06/29/17 09:20 600 MG Topiramate (Topamax Tab) 200 mg BID PO 06/24/17 00:45 07/24/17 08:59 06/29/17 09:19 200 MG Topiramate (Topamax Tab) 75 mg BID PO 06/26/17 08:00 07/24/17 08:59 06/29/17 09:20 75 MG Magnesium Oxide (Mag-Ox Tab) 400 mg BID PO 06/26/17 20:00 07/26/17 19:59 06/29/17 09:17 400 MG Oseltamivir Phosphate (Tamiflu Cap) 75 mg BID PO 06/27/17 20:00 07/02/17 19:59 06/29/17 09:18 75 MG Menthol ([place]) 1 spring Q1H PRN SPRING 06/27/17 21:45 07/27/17 21:44 Phenol (Chloraseptic 1.4% [place]) 2 sprays Q2H PRN MT 06/27/17 21:45 07/27/17 21:44 06/28/17 23:51 2 SPRAYS Potassium Chloride (Klor-Con Tab) 20 meq DAILY PO 06/29/17 08:00 07/26/17 07:59 06/29/17 09:17 20 MEQ
[2017-06-29] MEDS: ALBUT/IPRATROP 3MG/0.5MG NEB 3 ML VIAL INH SCH (19:05)
[2017-06-29 19:06] VITALS: PULSE 76; O2SAT 95
[2017-06-29] MEDS: CEFTRIAXONE SOD INJ 1 GM in DEXTROSE 5% ADD-VANTAGE 50ML 50 ML IV SCH (21:18)
[2017-06-29] MEDS: ENOXAPARIN 40 MG/0.4 ML SYR SQ SCH (21:19)
[2017-06-30] VITALS (8 sets, daily range): BP systolic 93–136; BP diastolic 67–90; PULSE 68–99; TEMP 36.5–36.8; O2SAT 92–97
[2017-06-30] MEDS: ALBUT/IPRATROP 3MG/0.5MG NEB 3 ML VIAL INH SCH ×4 (02:02→19:20)
[2017-06-30] MEDS: LEVOTHYROXINE 25 MCG TAB PO SCH (06:06)
[2017-06-30 07:20] LABS: CALCIUM 8.2 mg/dl (8.5-10.1); CREATININE 0.48 mg/dl (0.60-1.20); POTASSIUM 3.7 mmol/L (3.5-5.1)
[2017-06-30] MEDS ORDERED: MAGNESIUM SULFATE 1GM / D5W 1 GM in PREMIXED IN D5W 100 ML IV ONE (08:00)
[2017-06-30] MEDS: TOPIRAMATE 100 MG TAB PO SCH ×2 (08:43→19:58)
[2017-06-30] MEDS: PANTOprazole SOD 40 MG TAB PO SCH (08:43)
[2017-06-30] MEDS: MULTIVITAMIN TAB PO SCH (08:43)
[2017-06-30] MEDS: OXYBUTYNIN CHLORIDE 5 MG TABCR PO SCH (08:43)
[2017-06-30] MEDS: OXCARBAZEPINE 150 MG TAB PO SCH ×2 (08:44→19:54)
[2017-06-30] MEDS: MAGNESIUM OXIDE 400 MG TAB PO SCH ×2 (08:44→19:58)
[2017-06-30] MEDS: DULOXETINE HCL 60 MG CAP PO SCH (08:44)
[2017-06-30] MEDS: DICLOFENAC SOD EC 75 MG TABCR PO SCH ×2 (08:44→20:00)
[2017-06-30] MEDS: OSELTAMIVIR PHOSPHATE 75 MG CAP PO SCH ×2 (08:44→19:54)
[2017-06-30] MEDS: POTASSIUM CHLORIDE 20 MEQ TABCR PO SCH (08:45)
[2017-06-30] MEDS: TOPIRAMATE 25 MG TAB PO SCH ×2 (08:45→19:55)
[2017-06-30] MEDS: CALCIUM 600MG + VIT D 400 IU TAB PO SCH ×2 (08:45→19:59)
[2017-06-30] MEDS: DIVALPROEX SODIUM 500 MG DELAY RELEASE TAB PO SCH ×2 (08:45→19:58)
[2017-06-30] MEDS: CHLORASEPTIC 1.4% SOLN 180 ML BTL MT PRN ×2 (14:44→23:28)
--- NOTE | 2017-06-30 18:37 | Progress Note ---
Medicine Progress Note Date & Time of Visit: Jun 30, 2017 at 18:35. Subjective Pt was seen and examined Lying in bed with no distress She said that her cough improved She said that her throat feels irritating Denies any chest pain, palpitation and SOB Objective Last 8 Hrs Date Time Temp Pulse Resp B/P (MAP) Pulse Ox O2 Delivery O2 Flow Rate FiO2 06/30/17 15:31 Room Air 06/30/17 14:57 36.5 99 20 93/67 (76) 95 Room Air 06/30/17 14:10 82 16 96 Room Air Physical Exam: General- No acute distress Head- atraumatic Eyes- PERRL, EOMI ENT- oropharynx clear Neck- supple, no JVD Lungs- +mild wheezing Heart- regular rhythm Abdomen- normal bowel sounds, soft Extremities- no calf tenderness Neuro- alert, oriented, PERRL, EOMI; no facial palsy Skin- warm & dry Laboratory Results: Last 24 Hours Test 06/30/17 06:01 Sodium Level 129 mmol/L Potassium Level 3.7 mmol/L Chloride Level 96 mmol/L Carbon Dioxide Level 23 mmol/L Anion Gap 10.0 mmol/L Blood Urea Nitrogen 12 mg/dl Creatinine 0.48 mg/dl Est Creatinine Clear Calc Drug Dose 116.3 ml/min Estimated GFR () 120.1 Estimated GFR (Non- 103.7 BUN/Creatinine Ratio 24.1 Random Glucose 87 mg/dl Calcium Level 8.2 mg/dl Magnesium Level 1.7 mg/dl Assessment & Plan ALTERED MENTAL STATUS Possible related to UTI vs Seizure CT head on admission showed no acute intracranial abnormality. Neuro was consulted Dr. Bustillo Resolved UTI UA was positive for leukocytes, nitrite and bacteria Urine cx was contaminated repeat urine cx showed no growth, mostly result affected since pt has been on an abx. Completed course of Ceftriaxone INFLUENZA Positive influenza A CXR showed no infiltrate continue oseltamivir to complete 5 days course SEIZURE DISORDER Continue usual anticonvulsants. Follow up with neurology btw 1 to 2 weeks HYPONATREMIA Serum sodium 129 Possible related to Trileptal Will discuss that with neurology ( seizure seems to be controlled on this regimen) Continue monitor Will consult nephrology HYPOKALEMIA Serum potassium 3.2 K replaced Continue monitor BMP HYPOMAGNESEMIA Stable Continue monitor Mg level VTE PROPHYLAXIS SQ enoxaparin. DISPOSITION Expected discharge to [facility] follow-up with Dr. Vaughan. Current Inpatient Medications: Current Inpatient Medications Medications (Trade) Dose Ordered Sig/Ten Route Start Time Stop Time Status Last Admin Dose Admin Enoxaparin Sodium (Lovenox Inj) 40 mg Q24H SQ 06/23/17 23:00 07/23/17 22:59 06/29/17 21:19 40 MG Acetaminophen (Tylenol Tab) 650 mg Q4H PRN PO 06/23/17 21:30 07/23/17 21:29 06/27/17 18:32 650 MG Ondansetron HCl (Zofran Inj) 4 mg Q6H PRN IV 06/23/17 21:30 07/23/17 21:29 Ceftriaxone Sodium 1 gm/ Dextrose 50 ml @ 100 mls/hr Q24H IV 06/24/17 21:00 07/02/17 21:29 06/29/17 21:18 100 MLS/HR Diclofenac Sodium (Voltaren Tab) 75 mg BID PO 06/24/17 08:00 07/24/17 08:59 06/30/17 08:44 75 MG Duloxetine HCl (Cymbalta Cap) 60 mg DAILY PO 06/24/17 08:00 07/24/17 08:59 06/30/17 08:44 60 MG Acetaminophen/ Hydrocodone Bitart ([place] 10/325 Tab) 1 tab BID PRN PO 06/23/17 21:45 07/07/17 21:44 06/27/17 07:40 1 TAB Levothyroxine Sodium (Synthroid Tab) 25 mcg DAILYBB PO 06/24/17 06:30 07/24/17 06:59 06/30/17 06:06 25 MCG Multivitamins (Multivitamin Tab) 1 tab DAILY PO 06/24/17 08:00 07/24/17 08:59 06/30/17 08:43 1 TAB Calcium/Vitamin D (Caltrate Plus Tab) 1 tab BID PO 06/24/17 08:00 07/24/17 08:59 06/30/17 08:45 1 TAB Pantoprazole Sodium (Protonix Tab) 40 mg QAM PO 06/24/17 08:00 07/24/17 08:59 06/30/17 08:43 40 MG Oxybutynin Chloride (Ditropan-Xl Tab) 15 mg DAILY PO 06/24/17 08:00 07/24/17 08:59 06/30/17 08:43 15 MG Polyethylene (Miralax Powder Packet) 17 gm DAILY PRN PO 06/23/17 21:45 07/23/17 21:44 Divalproex Sodium (Depakote Delay Rel Tab) 1,000 mg BID PO 06/24/17 00:45 07/24/17 08:59 06/30/17 08:45 1,000 MG Oxcarbazepine (Trileptal Tab) 600 mg BID PO 06/24/17 00:45 07/24/17 08:59 06/30/17 08:44 600 MG Topiramate (Topamax Tab) 200 mg BID PO 06/24/17 00:45 07/24/17 08:59 06/30/17 08:43 200 MG Topiramate (Topamax Tab) 75 mg BID PO 06/26/17 08:00 07/24/17 08:59 06/30/17 08:45 75 MG Magnesium Oxide (Mag-Ox Tab) 400 mg BID PO 06/26/17 20:00 07/26/17 19:59 06/30/17 08:44 400 MG Oseltamivir Phosphate (Tamiflu Cap) 75 mg BID PO 06/27/17 20:00 07/02/17 19:59 06/30/17 08:44 75 MG Menthol ([place]) 1 spring Q1H PRN SPRING 06/27/17 21:45 07/27/17 21:44 Phenol (Chloraseptic 1.4% [place]) 2 sprays Q2H PRN MT 06/27/17 21:45 07/27/17 21:44 06/30/17 14:44 2 SPRAYS Potassium Chloride (Klor-Con Tab) 20 meq DAILY PO 06/29/17 08:00 07/26/17 07:59 06/30/17 08:45 20 MEQ Albuterol/ Ipratropium (Duoneb) 3 ml Q6R INH 06/29/17 21:00 07/29/17 20:59 06/30/17 14:10 3 ML
[2017-06-30] MEDS: CEFTRIAXONE SOD INJ 1 GM in DEXTROSE 5% ADD-VANTAGE 50ML 50 ML IV SCH (20:00)
[2017-06-30] MEDS: ENOXAPARIN 40 MG/0.4 ML SYR SQ SCH (23:29)
[2017-07-01 01:48] VITALS: PULSE 72; O2SAT 97
[2017-07-01] MEDS: ALBUT/IPRATROP 3MG/0.5MG NEB 3 ML VIAL INH SCH ×2 (01:48→07:25)
[2017-07-01] MEDS: LEVOTHYROXINE 25 MCG TAB PO SCH (06:43)
[2017-07-01 07:01] LABS: CALCIUM 8.3 mg/dl (8.5-10.1); CREATININE 0.6 mg/dl (0.60-1.20); POTASSIUM 3.7 mmol/L (3.5-5.1)
[2017-07-01 07:22] VITALS: BP 125/78; PULSE 71; TEMP 36.7; O2SAT 93
[2017-07-01 07:29] VITALS: PULSE 72; O2SAT 96
[2017-07-01] MEDS ORDERED: ALBUT/IPRATROP 3MG/0.5MG NEB 3 ML VIAL INH PRN (08:15)
[2017-07-01] MEDS: DULOXETINE HCL 60 MG CAP PO SCH (10:05)
[2017-07-01] MEDS: CALCIUM 600MG + VIT D 400 IU TAB PO SCH ×2 (10:05→19:48)
[2017-07-01] MEDS: DIVALPROEX SODIUM 500 MG DELAY RELEASE TAB PO SCH ×2 (10:06→19:48)
[2017-07-01] MEDS: POTASSIUM CHLORIDE 20 MEQ TABCR PO SCH (10:06)
[2017-07-01] MEDS: OXYBUTYNIN CHLORIDE 5 MG TABCR PO SCH (10:06)
[2017-07-01] MEDS: MAGNESIUM OXIDE 400 MG TAB PO SCH ×2 (10:06→19:47)
[2017-07-01] MEDS: TOPIRAMATE 25 MG TAB PO SCH ×2 (10:07→19:48)
[2017-07-01] MEDS: OSELTAMIVIR PHOSPHATE 75 MG CAP PO SCH ×2 (10:07→19:47)
[2017-07-01] MEDS: TOPIRAMATE 100 MG TAB PO SCH ×2 (10:07→19:49)
[2017-07-01] MEDS: MULTIVITAMIN TAB PO SCH (10:07)
[2017-07-01] MEDS: PANTOprazole SOD 40 MG TAB PO SCH (10:07)
[2017-07-01] MEDS: DICLOFENAC SOD EC 75 MG TABCR PO SCH ×2 (10:08→19:49)
[2017-07-01] MEDS: OXCARBAZEPINE 150 MG TAB PO SCH ×2 (10:08→19:48)
[2017-07-01 10:56] LABS: SODIUM RANDOM URINE 77 mEq/L
[2017-07-01 11:13] LABS: OSMOLALITY,URINE 313 mOms/kg (500-800)
[2017-07-01 14:49] VITALS: O2SAT 99
[2017-07-01] MEDS: SODIUM CHLORIDE 1 GM TAB PO SCH ×2 (15:57→19:47)
[2017-07-01] MEDS: HYDROCODONE/ACETAMI 10/325 TAB PO PRN (15:57)
[2017-07-01 16:00] VITALS: BP 131/79; PULSE 83; TEMP 36.5; O2SAT 95
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
--- NOTE | 2017-07-01 18:32 | Progress Note ---
Medicine Progress Note Date & Time of Visit: Jul 01, 2017 at 18:28. Subjective Pt was seen and examined Siting in bed with no distress Pt said that she feels much better She said that her cough improves Denies any chest pain, palpitation, dizziness and SOB Objective Last 8 Hrs Date Time Temp Pulse Resp B/P (MAP) Pulse Ox O2 Delivery O2 Flow Rate FiO2 07/01/17 16:00 36.5 83 16 131/79 (96) 95 Room Air 07/01/17 15:40 Room Air 07/01/17 14:49 99 07/01/17 11:25 Room Air Physical Exam: General- No acute distress Head- atraumatic Eyes- PERRL, EOMI ENT- oropharynx clear Neck- supple, no JVD Lungs- +mild wheezing Heart- regular rhythm Abdomen- normal bowel sounds, soft Extremities- no calf tenderness Neuro- alert, oriented, PERRL, EOMI; no facial palsy Skin- warm & dry Laboratory Results: Last 24 Hours Test 07/01/17 05:49 07/01/17 08:23 07/01/17 10:10 Sodium Level 128 mmol/L Potassium Level 3.7 mmol/L Chloride Level 95 mmol/L Carbon Dioxide Level 23 mmol/L Anion Gap 10.0 mmol/L Blood Urea Nitrogen 13 mg/dl Creatinine 0.60 mg/dl Est Creatinine Clear Calc Drug Dose 93.1 ml/min Estimated GFR () 111.6 Estimated GFR (Non- 96.3 BUN/Creatinine Ratio 21.3 Random Glucose 96 mg/dl Calcium Level 8.3 mg/dl Magnesium Level 1.9 mg/dl Osmolality 265 mOsm/kg Urine Osmolality 313 mOms/kg Urine Random Sodium 77 mEq/L Assessment & Plan ALTERED MENTAL STATUS Possible related to UTI vs Seizure CT head on admission showed no acute intracranial abnormality. Neuro was consulted Dr. Bustillo Resolved UTI UA was positive for leukocytes, nitrite and bacteria Urine cx was contaminated repeat urine cx showed no growth, mostly result affected since pt has been on an abx. Completed course of Ceftriaxone INFLUENZA Positive influenza A CXR showed no infiltrate continue oseltamivir to complete 5 days course Clinically improved SEIZURE DISORDER Continue usual anticonvulsants. 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 DISPOSITION Expected discharge to [facility] Medicine follow-up with Dr. Vaughan. Consultants: Nephro Neuro Current Inpatient Medications: Current Inpatient Medications Medications (Trade) Dose Ordered Sig/Ten Route Start Time Stop Time Status Last Admin Dose Admin Enoxaparin Sodium (Lovenox Inj) 40 mg Q24H SQ 06/23/17 23:00 07/23/17 22:59 06/30/17 23:29 40 MG Acetaminophen (Tylenol Tab) 650 mg Q4H PRN PO 06/23/17 21:30 07/23/17 21:29 06/27/17 18:32 650 MG Ondansetron HCl (Zofran Inj) 4 mg Q6H PRN IV 06/23/17 21:30 07/23/17 21:29 Ceftriaxone Sodium 1 gm/ Dextrose 50 ml @ 100 mls/hr Q24H IV 06/24/17 21:00 07/02/17 21:29 06/30/17 20:00 100 MLS/HR Diclofenac Sodium (Voltaren Tab) 75 mg BID PO 06/24/17 08:00 07/24/17 08:59 07/01/17 10:08 75 MG Duloxetine HCl (Cymbalta Cap) 60 mg DAILY PO 06/24/17 08:00 07/24/17 08:59 07/01/17 10:05 60 MG Acetaminophen/ Hydrocodone Bitart ([place] 10/325 Tab) 1 tab BID PRN PO 06/23/17 21:45 07/07/17 21:44 07/01/17 15:57 1 TAB Levothyroxine Sodium (Synthroid Tab) 25 mcg DAILYBB PO 06/24/17 06:30 07/24/17 06:59 07/01/17 06:43 25 MCG Multivitamins (Multivitamin Tab) 1 tab DAILY PO 06/24/17 08:00 07/24/17 08:59 07/01/17 10:07 1 TAB Calcium/Vitamin D (Caltrate Plus Tab) 1 tab BID PO 06/24/17 08:00 07/24/17 08:59 07/01/17 10:05 1 TAB Pantoprazole Sodium (Protonix Tab) 40 mg QAM PO 06/24/17 08:00 07/24/17 08:59 07/01/17 10:07 40 MG Oxybutynin Chloride (Ditropan-Xl Tab) 15 mg DAILY PO 06/24/17 08:00 07/24/17 08:59 07/01/17 10:06 15 MG Polyethylene (Miralax Powder Packet) 17 gm DAILY PRN PO 06/23/17 21:45 07/23/17 21:44 Divalproex Sodium (Depakote Delay Rel Tab) 1,000 mg BID PO 06/24/17 00:45 07/24/17 08:59 07/01/17 10:06 1,000 MG Oxcarbazepine (Trileptal Tab) 600 mg BID PO 06/24/17 00:45 07/24/17 08:59 07/01/17 10:08 600 MG Topiramate (Topamax Tab) 200 mg BID PO 06/24/17 00:45 07/24/17 08:59 07/01/17 10:07 200 MG Topiramate (Topamax Tab) 75 mg BID PO 06/26/17 08:00 07/24/17 08:59 07/01/17 10:07 75 MG Magnesium Oxide (Mag-Ox Tab) 400 mg BID PO 06/26/17 20:00 07/26/17 19:59 07/01/17 10:06 400 MG Oseltamivir Phosphate (Tamiflu Cap) 75 mg BID PO 06/27/17 20:00 07/02/17 19:59 07/01/17 10:07 75 MG Menthol ([place]) 1 spring Q1H PRN [place] 06/27/17 21:45 07/27/17 21:44 Phenol (Chloraseptic 1.4% [place]) 2 sprays Q2H PRN MT 06/27/17 21:45 07/27/17 21:44 06/30/17 23:28 2 SPRAYS Potassium Chloride (Klor-Con Tab) 20 meq DAILY PO 06/29/17 08:00 07/26/17 07:59 07/01/17 10:06 20 MEQ Albuterol/ Ipratropium (Duoneb) 3 ml Q4 PRN INH 07/01/17 08:15 07/31/17 08:14 Sodium Chloride (Sodium Chloride Tab) 1 gm BID PO 07/01/17 14:30 07/31/17 14:29 07/01/17 15:57 1 GM
[2017-07-01] MEDS: CEFTRIAXONE SOD INJ 1 GM in DEXTROSE 5% ADD-VANTAGE 50ML 50 ML IV SCH (20:00)
[2017-07-01] MEDS: ENOXAPARIN 40 MG/0.4 ML SYR SQ SCH (21:44)
[2017-07-01 23:41] VITALS: BP 86/51; PULSE 78; TEMP 36.8; O2SAT 92
[2017-07-02] MEDS: LEVOTHYROXINE 25 MCG TAB PO SCH (05:11)
[2017-07-02 06:22] LABS: CALCIUM 8.5 mg/dl (8.5-10.1); CREATININE 0.64 mg/dl (0.60-1.20); POTASSIUM 4.1 mmol/L (3.5-5.1)
--- NOTE | 2017-07-02 06:26 | Nephrology Progress Note ---
Nephrology Progress Note Date of Service: Jul 02, 2017. Subjective 62 yo female seen for hyponatremia thought to be medicine related. pt overall doing very well. on fluid restriction and salt tablets. 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 no complaints. Objective Date Time Temp Pulse Resp B/P (MAP) Pulse Ox O2 Delivery O2 Flow Rate FiO2 07/01/17 23:41 36.8 78 20 86/51 (63) 92 Room Air 07/01/17 16:00 36.5 83 16 131/79 (96) 95 Room Air 07/01/17 15:40 Room Air 07/01/17 14:49 99 07/01/17 11:25 Room Air 07/01/17 07:29 72 14 96 Room Air 07/01/17 07:22 36.7 71 16 125/78 (94) 93 Room Air Physical Exam: General-aaox3 Eyes-no scleral icterus ENT-mmm Neck-supple Lungs-cta Heart-rrr Abdomen-bs+ s/nt/nd Extremities-no c/c/e Neuro-chronic weakness on her right leg, poor memory Current Inpatient Medications Medications (Trade) Dose Ordered Sig/Ten Route Start Time Stop Time Status Last Admin Dose Admin Enoxaparin Sodium (Lovenox Inj) 40 mg Q24H SQ 06/23/17 23:00 07/23/17 22:59 07/01/17 21:44 40 MG Acetaminophen (Tylenol Tab) 650 mg Q4H PRN PO 06/23/17 21:30 07/23/17 21:29 06/27/17 18:32 650 MG Ondansetron HCl (Zofran Inj) 4 mg Q6H PRN IV 06/23/17 21:30 07/23/17 21:29 Ceftriaxone Sodium 1 gm/ Dextrose 50 ml @ 100 mls/hr Q24H IV 06/24/17 21:00 07/02/17 21:29 07/01/17 20:00 100 MLS/HR Diclofenac Sodium (Voltaren Tab) 75 mg BID PO 06/24/17 08:00 07/24/17 08:59 07/01/17 19:49 75 MG Duloxetine HCl (Cymbalta Cap) 60 mg DAILY PO 06/24/17 08:00 07/24/17 08:59 07/01/17 10:05 60 MG Acetaminophen/ Hydrocodone Bitart ([place] 10/325 Tab) 1 tab BID PRN PO 06/23/17 21:45 07/07/17 21:44 07/01/17 15:57 1 TAB Levothyroxine Sodium (Synthroid Tab) 25 mcg DAILYBB PO 06/24/17 06:30 07/24/17 06:59 07/02/17 05:11 25 MCG Multivitamins (Multivitamin Tab) 1 tab DAILY PO 06/24/17 08:00 07/24/17 08:59 07/01/17 10:07 1 TAB Calcium/Vitamin D (Caltrate Plus Tab) 1 tab BID PO 06/24/17 08:00 07/24/17 08:59 07/01/17 19:48 1 TAB Pantoprazole Sodium (Protonix Tab) 40 mg QAM PO 06/24/17 08:00 07/24/17 08:59 07/01/17 10:07 40 MG Oxybutynin Chloride (Ditropan-Xl Tab) 15 mg DAILY PO 06/24/17 08:00 07/24/17 08:59 07/01/17 10:06 15 MG Polyethylene (Miralax Powder Packet) 17 gm DAILY PRN PO 06/23/17 21:45 07/23/17 21:44 Divalproex Sodium (Depakote Delay Rel Tab) 1,000 mg BID PO 06/24/17 00:45 07/24/17 08:59 07/01/17 19:48 1,000 MG Oxcarbazepine (Trileptal Tab) 600 mg BID PO 06/24/17 00:45 07/24/17 08:59 07/01/17 19:48 600 MG Topiramate (Topamax Tab) 200 mg BID PO 06/24/17 00:45 07/24/17 08:59 07/01/17 19:49 200 MG Topiramate (Topamax Tab) 75 mg BID PO 06/26/17 08:00 07/24/17 08:59 07/01/17 19:48 75 MG Magnesium Oxide (Mag-Ox Tab) 400 mg BID PO 06/26/17 20:00 07/26/17 19:59 07/01/17 19:47 400 MG Oseltamivir Phosphate (Tamiflu Cap) 75 mg BID PO 06/27/17 20:00 07/02/17 19:59 07/01/17 19:47 75 MG Menthol ([place]) 1 spring Q1H PRN [place] 06/27/17 21:45 07/27/17 21:44 Phenol (Chloraseptic 1.4% [place]) 2 sprays Q2H PRN [place] 06/27/17 21:45 07/27/17 21:44 06/30/17 23:28 2 SPRAYS Potassium Chloride (Klor-Con Tab) 20 meq DAILY PO 06/29/17 08:00 07/26/17 07:59 07/01/17 10:06 20 MEQ Albuterol/ Ipratropium (Duoneb) 3 ml Q4 PRN INH 07/01/17 08:15 07/31/17 08:14 Sodium Chloride (Sodium Chloride Tab) 1 gm BID PO 07/01/17 14:30 07/31/17 14:29 07/01/17 19:47 1 GM Last 24 Hours Test 07/01/17 08:23 07/01/17 10:10 07/02/17 05:29 Osmolality 265 mOsm/kg Urine Osmolality 313 mOms/kg Urine Random Sodium 77 mEq/L Sodium Level 126 mmol/L Potassium Level 4.1 mmol/L Chloride Level 93 mmol/L Carbon Dioxide Level 24 mmol/L Anion Gap 8.0 mmol/L Blood Urea Nitrogen 13 mg/dl Creatinine 0.64 mg/dl Est Creatinine Clear Calc Drug Dose 87.3 ml/min Estimated GFR () 109.3 Estimated GFR (Non- 94.3 BUN/Creatinine Ratio 19.7 Random Glucose 82 mg/dl Calcium Level 8.5 mg/dl Magnesium Level 1.7 mg/dl Chemistry Specimen Hemolysis Assessment & Plan hyponatremia-felt to be medication related and needs to continue current medications. given fluid restriction and salt tablets. labs pending for this am. would continue current regimen and repeat bmp as an outpt on wednesday and weekly afterwards for the next four weeks. goal sodium of 130 or above.
[2017-07-02 08:08] VITALS: BP 127/83; PULSE 66; TEMP 36.8; O2SAT 99
[2017-07-02] MEDS: OSELTAMIVIR PHOSPHATE 75 MG CAP PO SCH (08:15)
[2017-07-02] MEDS: SODIUM CHLORIDE 1 GM TAB PO SCH ×2 (08:16→21:38)
[2017-07-02] MEDS: OXCARBAZEPINE 150 MG TAB PO SCH ×2 (08:16→21:39)
[2017-07-02] MEDS: OXYBUTYNIN CHLORIDE 5 MG TABCR PO SCH (08:17)
[2017-07-02] MEDS: TOPIRAMATE 25 MG TAB PO SCH ×2 (08:17→21:39)
[2017-07-02] MEDS: CALCIUM 600MG + VIT D 400 IU TAB PO SCH ×2 (08:17→21:36)
[2017-07-02] MEDS: MULTIVITAMIN TAB PO SCH (08:17)
[2017-07-02] MEDS: PANTOprazole SOD 40 MG TAB PO SCH (08:18)
[2017-07-02] MEDS: TOPIRAMATE 100 MG TAB PO SCH ×2 (08:18→21:38)
[2017-07-02] MEDS: MAGNESIUM OXIDE 400 MG TAB PO SCH ×2 (08:19→21:38)
[2017-07-02] MEDS: POTASSIUM CHLORIDE 20 MEQ TABCR PO SCH (08:19)
[2017-07-02] MEDS: DULOXETINE HCL 60 MG CAP PO SCH (08:19)
[2017-07-02] MEDS: DICLOFENAC SOD EC 75 MG TABCR PO SCH ×2 (08:19→21:40)
[2017-07-02] MEDS: DIVALPROEX SODIUM 500 MG DELAY RELEASE TAB PO SCH ×2 (08:20→21:37)
[2017-07-02] MEDS ORDERED: MAGNESIUM SULFATE 1GM / D5W 1 GM in PREMIXED IN D5W 100 ML IV ONE (08:30)
[2017-07-02 08:50] VITALS: O2SAT 99
[2017-07-02] MEDS: HYDROCODONE/ACETAMI 10/325 TAB PO PRN (09:27)
[2017-07-02 14:48] VITALS: BP 90/59; PULSE 80; TEMP 36.4; O2SAT 94
--- NOTE | 2017-07-02 16:17 | Progress Note ---
Medicine Progress Note Date & Time of Visit: Jul 02, 2017 at 16:14. Subjective Pt was seen and examined Lying in bed with no distress Pt said that she is coughing less She denies any chest pain, palpitation and SOB Objective Last 8 Hrs Date Time Temp Pulse Resp B/P (MAP) Pulse Ox O2 Delivery O2 Flow Rate FiO2 07/02/17 14:48 36.4 80 20 90/59 (69) 94 Room Air 07/02/17 08:50 99 Room Air Physical Exam: General- No acute distress Head- atraumatic Eyes- PERRL, EOMI ENT- oropharynx clear Neck- supple, no JVD Lungs- No wheezing Heart- regular rhythm Abdomen- normal bowel sounds, soft Extremities- no calf tenderness Neuro- alert, oriented, PERRL, EOMI; no facial palsy Skin- warm & dry Laboratory Results: Last 24 Hours Test 07/02/17 05:29 07/02/17 15:30 Sodium Level 126 mmol/L Potassium Level 4.1 mmol/L Chloride Level 93 mmol/L Carbon Dioxide Level 24 mmol/L Anion Gap 8.0 mmol/L Blood Urea Nitrogen 13 mg/dl Creatinine 0.64 mg/dl Est Creatinine Clear Calc Drug Dose 87.3 ml/min Estimated GFR () 109.3 Estimated GFR (Non- 94.3 BUN/Creatinine Ratio 19.7 Random Glucose 82 mg/dl Calcium Level 8.5 mg/dl Magnesium Level 1.7 mg/dl Chemistry Specimen Hemolysis Assessment & Plan ALTERED MENTAL STATUS Possible related to UTI vs Seizure CT head on admission showed no acute intracranial abnormality. Neuro was consulted Dr. Bustillo Resolved UTI UA was positive for leukocytes, nitrite and bacteria Urine cx was contaminated repeat urine cx showed no growth, mostly result affected since pt has been on an abx. Completed course of Ceftriaxone INFLUENZA Positive influenza A CXR showed no infiltrate continue oseltamivir to complete 5 days course Clinically improved SEIZURE DISORDER Continue usual anticonvulsants. 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 DISPOSITION Expected discharge to [facility] Medicine follow-up with Dr. Vaughan. Consultants: Nephro Neuro Current Inpatient Medications: Current Inpatient Medications Medications (Trade) Dose Ordered Sig/Ten Route Start Time Stop Time Status Last Admin Dose Admin Enoxaparin Sodium (Lovenox Inj) 40 mg Q24H SQ 06/23/17 23:00 07/23/17 22:59 07/01/17 21:44 40 MG Acetaminophen (Tylenol Tab) 650 mg Q4H PRN PO 06/23/17 21:30 07/23/17 21:29 06/27/17 18:32 650 MG Ondansetron HCl (Zofran Inj) 4 mg Q6H PRN IV 06/23/17 21:30 07/23/17 21:29 Ceftriaxone Sodium 1 gm/ Dextrose 50 ml @ 100 mls/hr Q24H IV 06/24/17 21:00 07/02/17 21:29 07/01/17 20:00 100 MLS/HR Diclofenac Sodium (Voltaren Tab) 75 mg BID PO 06/24/17 08:00 07/24/17 08:59 07/02/17 08:19 75 MG Duloxetine HCl (Cymbalta Cap) 60 mg DAILY PO 06/24/17 08:00 07/24/17 08:59 07/02/17 08:19 60 MG Acetaminophen/ Hydrocodone Bitart ([place] 10/325 Tab) 1 tab BID PRN PO 06/23/17 21:45 07/07/17 21:44 07/02/17 09:27 1 TAB Levothyroxine Sodium (Synthroid Tab) 25 mcg DAILYBB PO 06/24/17 06:30 07/24/17 06:59 07/02/17 05:11 25 MCG Multivitamins (Multivitamin Tab) 1 tab DAILY PO 06/24/17 08:00 07/24/17 08:59 07/02/17 08:17 1 TAB Calcium/Vitamin D (Caltrate Plus Tab) 1 tab BID PO 06/24/17 08:00 07/24/17 08:59 07/02/17 08:17 1 TAB Pantoprazole Sodium (Protonix Tab) 40 mg QAM PO 06/24/17 08:00 07/24/17 08:59 07/02/17 08:18 40 MG Oxybutynin Chloride (Ditropan-Xl Tab) 15 mg DAILY PO 06/24/17 08:00 07/24/17 08:59 07/02/17 08:17 15 MG Polyethylene (Miralax Powder Packet) 17 gm DAILY PRN PO 06/23/17 21:45 07/23/17 21:44 Divalproex Sodium (Depakote Delay Rel Tab) 1,000 mg BID PO 06/24/17 00:45 07/24/17 08:59 07/02/17 08:20 1,000 MG Oxcarbazepine (Trileptal Tab) 600 mg BID PO 06/24/17 00:45 07/24/17 08:59 07/02/17 08:16 600 MG Topiramate (Topamax Tab) 200 mg BID PO 06/24/17 00:45 07/24/17 08:59 07/02/17 08:18 200 MG Topiramate (Topamax Tab) 75 mg BID PO 06/26/17 08:00 07/24/17 08:59 07/02/17 08:17 75 MG Magnesium Oxide (Mag-Ox Tab) 400 mg BID PO 06/26/17 20:00 07/26/17 19:59 07/02/17 08:19 400 MG Oseltamivir Phosphate (Tamiflu Cap) 75 mg BID PO 06/27/17 20:00 07/02/17 19:59 07/02/17 08:15 75 MG Menthol ([place]) 1 spring Q1H PRN SPRING 06/27/17 21:45 07/27/17 21:44 Phenol (Chloraseptic 1.4% [place]) 2 sprays Q2H PRN MT 06/27/17 21:45 07/27/17 21:44 06/30/17 23:28 2 SPRAYS Potassium Chloride (Klor-Con Tab) 20 meq DAILY PO 06/29/17 08:00 07/26/17 07:59 07/02/17 08:19 20 MEQ Albuterol/ Ipratropium (Duoneb) 3 ml Q4 PRN INH 07/01/17 08:15 07/31/17 08:14 Sodium Chloride (Sodium Chloride Tab) 2 gm BID PO 07/02/17 08:00 07/31/17 14:29 07/02/17 08:16 2 GM
[2017-07-02 18:36] LABS: CALCIUM 7.9 mg/dl (8.5-10.1); CREATININE 0.77 mg/dl (0.60-1.20); POTASSIUM 4.3 mmol/L (3.5-5.1)
[2017-07-02] MEDS: CEFTRIAXONE SOD INJ 1 GM in DEXTROSE 5% ADD-VANTAGE 50ML 50 ML IV SCH (21:40)
[2017-07-02] MEDS: ENOXAPARIN 40 MG/0.4 ML SYR SQ SCH (21:43)
[2017-07-02 23:23] VITALS: BP 122/81; PULSE 79; TEMP 36.7; O2SAT 97
[2017-07-02] MEDS: ACETAMINOPHEN 325 MG TAB PO PRN (23:34)
[2017-07-03] MEDS: HYDROCODONE/ACETAMI 10/325 TAB PO PRN ×2 (01:22→22:06)
[2017-07-03] MEDS: LEVOTHYROXINE 25 MCG TAB PO SCH (06:37)
[2017-07-03 07:35] VITALS: BP 113/77; PULSE 64; TEMP 36.6; O2SAT 99
[2017-07-03 08:04] LABS: CREATININE 0.53 mg/dl (0.60-1.20); POTASSIUM 3.8 mmol/L (3.5-5.1)
[2017-07-03] MEDS: POTASSIUM CHLORIDE 20 MEQ TABCR PO SCH (09:23)
[2017-07-03] MEDS: DULOXETINE HCL 60 MG CAP PO SCH (09:23)
[2017-07-03] MEDS: DICLOFENAC SOD EC 75 MG TABCR PO SCH ×2 (09:23→19:43)
[2017-07-03] MEDS: MAGNESIUM OXIDE 400 MG TAB PO SCH ×2 (09:23→19:45)
[2017-07-03] MEDS: CALCIUM 600MG + VIT D 400 IU TAB PO SCH ×2 (09:23→19:42)
[2017-07-03] MEDS: DIVALPROEX SODIUM 500 MG DELAY RELEASE TAB PO SCH ×2 (09:24→19:43)
[2017-07-03] MEDS: OXCARBAZEPINE 150 MG TAB PO SCH ×2 (09:24→19:44)
[2017-07-03] MEDS: TOPIRAMATE 25 MG TAB PO SCH ×2 (09:24→19:45)
[2017-07-03] MEDS: OXYBUTYNIN CHLORIDE 5 MG TABCR PO SCH (09:25)
[2017-07-03] MEDS: MULTIVITAMIN TAB PO SCH (09:26)
[2017-07-03] MEDS: PANTOprazole SOD 40 MG TAB PO SCH (09:26)
[2017-07-03] MEDS: SODIUM CHLORIDE 1 GM TAB PO SCH (09:26)
[2017-07-03] MEDS: TOPIRAMATE 100 MG TAB PO SCH ×2 (09:26→19:43)
--- NOTE | 2017-07-03 13:44 | NEPHROLOGY PROGRESS NOTE ---
DATE: 07/03/2017 SUBJECTIVE: Overnight, the patient did fine. She is still on fluid restriction and salt tablet. The dose of salt tablet was raised to 2 grams b.i.d. yesterday but even then serum sodium is dropping and is down to 125. She is otherwise hemodynamically stable. It is very hard to obtain history from the patient, but she denies any complaints. PHYSICAL EXAMINATION: VITAL SIGNS: Blood pressure is 113/77, 99% on room air, pulse rate 64, temperature 36.6. HEENT: Mucous membranes moist. NECK: Supple. No jugular venous distention. CHEST: Bilateral clear to auscultation. CARDIOVASCULAR: S1 and S2, regular. ABDOMEN: Soft, nontender. EXTREMITIES: Trace edema. LABORATORY TESTS: From this morning shows sodium 125, potassium 3.8, BUN 16, and creatinine 0.5. ASSESSMENT AND PLAN: Hyponatremia with the last urine osmolality of 395 and a random urine sodium of 77. PLAN: Hyponatremia is not improving with the current management of fluid restriction and salt tablet, in fact it has been consistently trending down. I would discontinued the salt tablet for now, give normal saline at 50 mL per hour with IV Lasix. Continue to check the labs with a goal sodium of 130 or above. MTDD
[2017-07-03] MEDS: SODIUM CHLORIDE 0.9% 1000ML 1,000 ML IV SCH (13:46)
[2017-07-03] MEDS ORDERED: FUROSEMIDE INJ 20 MG in SYRINGE 0 ML IV SCH (14:00)
[2017-07-03 15:06] VITALS: BP 138/79; PULSE 78; TEMP 36.3; O2SAT 93
--- NOTE | 2017-07-03 15:47 | Progress Note ---
Medicine Progress Note Date & Time of Visit: Jul 03, 2017 at 15:31. Subjective Pt was seen and examined Sitting at the edge of bed with no distress Pt said that cough better she said that she feels better She has not been eating much because she is watching her diet She said that she does not want to gain any weight Denies any chest pain, palpitation, dizziness and SOB Objective Last 8 Hrs Date Time Temp Pulse Resp B/P (MAP) Pulse Ox O2 Delivery O2 Flow Rate FiO2 07/03/17 15:06 36.3 78 18 138/79 (98) 93 Room Air 07/03/17 10:00 Room Air 07/03/17 07:35 36.6 64 20 113/77 (89) 99 Physical Exam: General- No acute distress Head- atraumatic Eyes- PERRL, EOMI ENT- oropharynx clear Neck- supple, no JVD Lungs- No wheezing Heart- regular rhythm Abdomen- normal bowel sounds, soft Extremities- no calf tenderness Neuro- alert, oriented, PERRL, EOMI; no facial palsy Skin- warm & dry Laboratory Results: Last 24 Hours Test 07/02/17 17:45 07/03/17 07:22 Sodium Level 125 mmol/L 125 mmol/L Potassium Level 4.3 mmol/L 3.8 mmol/L Chloride Level 92 mmol/L 94 mmol/L Carbon Dioxide Level 24 mmol/L 21 mmol/L Anion Gap 8.0 mmol/L 11.0 mmol/L Blood Urea Nitrogen 13 mg/dl 16 mg/dl Creatinine 0.77 mg/dl 0.53 mg/dl Est Creatinine Clear Calc Drug Dose 72.5 ml/min 105.4 ml/min Estimated GFR () 94.6 116.3 Estimated GFR (Non- 81.6 100.3 BUN/Creatinine Ratio 16.9 29.5 Random Glucose 93 mg/dl 93 mg/dl Calcium Level 7.9 mg/dl 8.0 mg/dl Assessment & Plan ALTERED MENTAL STATUS Possible related to UTI vs Seizure CT head on admission showed no acute intracranial abnormality. Neuro was consulted Dr. Bustillo Resolved UTI UA was positive for leukocytes, nitrite and bacteria Urine cx was contaminated repeat urine cx showed no growth, mostly result affected since pt has been on an abx. Completed course of Ceftriaxone INFLUENZA Positive influenza A CXR showed no infiltrate Completed course of tamiflu Clinically improved SEIZURE DISORDER Continue usual anticonvulsants. 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 Holley recommended to discontinue salt tablet starting on NS at 50ml/hr and will start on Lasix Continue monitor Na closely NA Goal 130 HYPOKALEMIA Stable Continue monitor BMP HYPOMAGNESEMIA Stable Continue monitor Mg level VTE PROPHYLAXIS SQ enoxaparin. DISPOSITION Expected discharge to [facility] follow-up with Dr. Vaughan. Consultants: Nephro Neuro Current Inpatient Medications: Current Inpatient Medications Medications (Trade) Dose Ordered Sig/Ten Route Start Time Stop Time Status Last Admin Dose Admin Enoxaparin Sodium (Lovenox Inj) 40 mg Q24H SQ 06/23/17 23:00 07/23/17 22:59 07/02/17 21:43 40 MG Acetaminophen (Tylenol Tab) 650 mg Q4H PRN PO 06/23/17 21:30 07/23/17 21:29 07/02/17 23:34 650 MG Ondansetron HCl (Zofran Inj) 4 mg Q6H PRN IV 06/23/17 21:30 07/23/17 21:29 Diclofenac Sodium (Voltaren Tab) 75 mg BID PO 06/24/17 08:00 07/24/17 08:59 07/03/17 09:23 75 MG Duloxetine HCl (Cymbalta Cap) 60 mg DAILY PO 06/24/17 08:00 07/24/17 08:59 07/03/17 09:23 60 MG Acetaminophen/ Hydrocodone Bitart ([place] 10/325 Tab) 1 tab BID PRN PO 06/23/17 21:45 07/07/17 21:44 07/03/17 01:22 1 TAB Levothyroxine Sodium (Synthroid Tab) 25 mcg DAILYBB PO 06/24/17 06:30 07/24/17 06:59 07/03/17 06:37 25 MCG Multivitamins (Multivitamin Tab) 1 tab DAILY PO 06/24/17 08:00 07/24/17 08:59 07/03/17 09:26 1 TAB Calcium/Vitamin D (Caltrate Plus Tab) 1 tab BID PO 06/24/17 08:00 07/24/17 08:59 07/03/17 09:23 1 TAB Pantoprazole Sodium (Protonix Tab) 40 mg QAM PO 06/24/17 08:00 07/24/17 08:59 07/03/17 09:26 40 MG Oxybutynin Chloride (Ditropan-Xl Tab) 15 mg DAILY PO 06/24/17 08:00 07/24/17 08:59 07/03/17 09:25 15 MG Polyethylene (Miralax Powder Packet) 17 gm DAILY PRN PO 06/23/17 21:45 07/23/17 21:44 Divalproex Sodium (Depakote Delay Rel Tab) 1,000 mg BID PO 06/24/17 00:45 07/24/17 08:59 07/03/17 09:24 1,000 MG Oxcarbazepine (Trileptal Tab) 600 mg BID PO 06/24/17 00:45 07/24/17 08:59 07/03/17 09:24 600 MG Topiramate (Topamax Tab) 200 mg BID PO 06/24/17 00:45 07/24/17 08:59 07/03/17 09:26 200 MG Topiramate (Topamax Tab) 75 mg BID PO 06/26/17 08:00 07/24/17 08:59 07/03/17 09:24 75 MG Magnesium Oxide (Mag-Ox Tab) 400 mg BID PO 06/26/17 20:00 07/26/17 19:59 07/03/17 09:23 400 MG Menthol ([place]) 1 spring Q1H PRN SPRING 06/27/17 21:45 07/27/17 21:44 Phenol (Chloraseptic 1.4% [place]) 2 sprays Q2H PRN MT 06/27/17 21:45 07/27/17 21:44 06/30/17 23:28 2 SPRAYS Potassium Chloride (Klor-Con Tab) 20 meq DAILY PO 06/29/17 08:00 07/26/17 07:59 07/03/17 09:23 20 MEQ Albuterol/ Ipratropium (Duoneb) 3 ml Q4 PRN INH 07/01/17 08:15 07/31/17 08:14 Sodium Chloride 1,000 ml @ 50 mls/hr Q20H IV 07/03/17 13:00 08/02/17 12:59 07/03/17 13:46 50 MLS/HR Furosemide 20 mg/ Syringe 2 ml @ 4 mls/min BID17 IV 07/03/17 17:00 08/02/17 16:59
[2017-07-03] MEDS: FUROSEMIDE INJ 20 MG in SYRINGE 0 ML IV SCH (19:46)
[2017-07-03] MEDS: ENOXAPARIN 40 MG/0.4 ML SYR SQ SCH (19:48)
[2017-07-03 23:38] VITALS: BP 125/83; PULSE 79; TEMP 36.7; O2SAT 92
[2017-07-04] MEDS: LEVOTHYROXINE 25 MCG TAB PO SCH (06:10)
[2017-07-04 07:19] LABS: CALCIUM 7.8 mg/dl (8.5-10.1); CREATININE 0.6 mg/dl (0.60-1.20); POTASSIUM 3.5 mmol/L (3.5-5.1)
[2017-07-04] MEDS: MAGNESIUM OXIDE 400 MG TAB PO SCH ×2 (08:03→19:54)
[2017-07-04] MEDS: CALCIUM 600MG + VIT D 400 IU TAB PO SCH ×2 (08:03→19:55)
[2017-07-04] MEDS: PANTOprazole SOD 40 MG TAB PO SCH (08:04)
[2017-07-04] MEDS: MULTIVITAMIN TAB PO SCH (08:04)
[2017-07-04] MEDS: TOPIRAMATE 100 MG TAB PO SCH ×2 (08:04→19:55)
[2017-07-04] MEDS: OXYBUTYNIN CHLORIDE 5 MG TABCR PO SCH (08:04)
[2017-07-04] MEDS: DICLOFENAC SOD EC 75 MG TABCR PO SCH ×2 (08:04→19:53)
[2017-07-04] MEDS: DULOXETINE HCL 60 MG CAP PO SCH (08:05)
[2017-07-04] MEDS: TOPIRAMATE 25 MG TAB PO SCH ×2 (08:05→19:54)
[2017-07-04] MEDS: POTASSIUM CHLORIDE 20 MEQ TABCR PO SCH (08:06)
[2017-07-04] MEDS: DIVALPROEX SODIUM 500 MG DELAY RELEASE TAB PO SCH ×2 (08:06→19:53)
[2017-07-04] MEDS: FUROSEMIDE INJ 20 MG in SYRINGE 0 ML IV SCH ×2 (08:07→16:13)
[2017-07-04 08:19] VITALS: BP 101/66; PULSE 70; TEMP 36.7; O2SAT 97
[2017-07-04] MEDS: SODIUM CHLORIDE 0.9% 1000ML 1,000 ML IV SCH (08:57)
[2017-07-04] MEDS: OXCARBAZEPINE 150 MG TAB PO SCH ×2 (08:57→19:51)
[2017-07-04 16:02] VITALS: BP 117/74; PULSE 98; TEMP 36.6; O2SAT 98
[2017-07-04] MEDS ORDERED: FUROSEMIDE INJ 30 MG in SYRINGE 0 ML IV SCH (17:00)
--- NOTE | 2017-07-04 18:17 | PROGRESS NOTE ---
DATE: 07/04/2017 SUBJECTIVE: Overnight, the patient did fine. She is still on fluid restriction and denies any new complaints. It is hard to get history from the patient. Yesterday afternoon, I stopped the salt tablet and changed over to normal saline infusion with IV Lasix. Serum sodium has gone up slightly from 125-127 this morning. She is making urine, has made 1400 mL since midnight and made 2375 mL yesterday. OBJECTIVE: VITAL SIGNS: Blood pressure 117/74, 98% on room air. Pulse rate 98 per minute, temperature 36.6. HEENT: Mucous membranes are moist. NECK: Supple. No jugular venous distention. CHEST: Bilateral clear to auscultation. CARDIOVASCULAR: S1 and S2, regular. ABDOMEN: Soft, nontender. EXTREMITIES: Trace edema. LABORATORY DATA: Sodium 127, potassium 3.5, BUN 18, creatinine 0.60. ASSESSMENT AND PLAN: Hyponatremia---sodium did improve slightly from 125 yesterday to 127, but I would like to increase the rate of IV fluids to normal saline at 100 mL per hour and also increase the dose of Lasix to get some more free water diuresis. increase the Lasix to 30 mg IV b.i.d. and increase the IV fluid to 100 mL per hour. Continue to check the labs. At this time she is not really at danger of having problems with overcorrection. She can have labs in the morning. PIPOD
--- NOTE | 2017-07-04 18:22 | Progress Note ---
Medicine Progress Note Date & Time of Visit: Jul 04, 2017 at 18:18. Subjective Pt was seen and examined Sitting in bed with no distress Denies any chest pain, palpitation and sob Objective Last 8 Hrs Date Time Temp Pulse Resp B/P (MAP) Pulse Ox O2 Delivery O2 Flow Rate FiO2 07/04/17 16:02 36.6 98 20 117/74 (88) 98 Room Air 07/04/17 15:14 Room Air Physical Exam: General- No acute distress Head- atraumatic Eyes- PERRL, EOMI ENT- oropharynx clear Neck- supple, no JVD Lungs- No wheezing Heart- regular rhythm Abdomen- normal bowel sounds, soft Extremities- no calf tenderness Neuro- alert, oriented, PERRL, EOMI; no facial palsy Skin- warm & dry Laboratory Results: Last 24 Hours Test 07/04/17 06:32 Sodium Level 127 mmol/L Potassium Level 3.5 mmol/L Chloride Level 96 mmol/L Carbon Dioxide Level 22 mmol/L Anion Gap 9.0 mmol/L Blood Urea Nitrogen 18 mg/dl Creatinine 0.60 mg/dl Est Creatinine Clear Calc Drug Dose 93.1 ml/min Estimated GFR () 111.6 Estimated GFR (Non- 96.3 BUN/Creatinine Ratio 30.0 Random Glucose 97 mg/dl Calcium Level 7.8 mg/dl Magnesium Level 2.1 mg/dl Assessment & Plan ALTERED MENTAL STATUS Possible related to UTI vs Seizure CT head on admission showed no acute intracranial abnormality. Neuro was consulted Dr. Bustillo Resolved UTI UA was positive for leukocytes, nitrite and bacteria Urine cx was contaminated repeat urine cx showed no growth, mostly result affected since pt has been on an abx. Completed course of Ceftriaxone INFLUENZA Positive influenza A CXR showed no infiltrate Completed course of tamiflu Clinically improved SEIZURE DISORDER Continue usual anticonvulsants. 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 Holley recommended to discontinue salt tablet starting on NS at 50ml/hr and will start on Lasix Continue monitor Na closely NA Goal 130 HYPOKALEMIA Stable Continue monitor BMP HYPOMAGNESEMIA Stable Continue monitor Mg level VTE PROPHYLAXIS SQ enoxaparin. DISPOSITION Expected discharge to [facility] once medically stable Family Medicine follow-up with Dr. Vaughan. Consultants: Nephro Neuro Current Inpatient Medications: Current Inpatient Medications Medications (Trade) Dose Ordered Sig/Ten Route Start Time Stop Time Status Last Admin Dose Admin Enoxaparin Sodium (Lovenox Inj) 40 mg Q24H SQ 06/23/17 23:00 07/23/17 22:59 07/03/17 19:48 40 MG Acetaminophen (Tylenol Tab) 650 mg Q4H PRN PO 06/23/17 21:30 07/23/17 21:29 07/02/17 23:34 650 MG Ondansetron HCl (Zofran Inj) 4 mg Q6H PRN IV 06/23/17 21:30 07/23/17 21:29 Diclofenac Sodium (Voltaren Tab) 75 mg BID PO 06/24/17 08:00 07/24/17 08:59 07/04/17 08:04 75 MG Duloxetine HCl (Cymbalta Cap) 60 mg DAILY PO 06/24/17 08:00 07/24/17 08:59 07/04/17 08:05 60 MG Acetaminophen/ Hydrocodone Bitart ([place] 10/325 Tab) 1 tab BID PRN PO 06/23/17 21:45 07/07/17 21:44 07/03/17 22:06 1 TAB Levothyroxine Sodium (Synthroid Tab) 25 mcg DAILYBB PO 06/24/17 06:30 07/24/17 06:59 07/04/17 06:10 25 MCG Multivitamins (Multivitamin Tab) 1 tab DAILY PO 06/24/17 08:00 07/24/17 08:59 07/04/17 08:04 1 TAB Calcium/Vitamin D (Caltrate Plus Tab) 1 tab BID PO 06/24/17 08:00 07/24/17 08:59 07/04/17 08:03 1 TAB Pantoprazole Sodium (Protonix Tab) 40 mg QAM PO 06/24/17 08:00 07/24/17 08:59 07/04/17 08:04 40 MG Oxybutynin Chloride (Ditropan-Xl Tab) 15 mg DAILY PO 06/24/17 08:00 07/24/17 08:59 07/04/17 08:04 15 MG Polyethylene (Miralax Powder Packet) 17 gm DAILY PRN PO 06/23/17 21:45 07/23/17 21:44 Divalproex Sodium (Depakote Delay Rel Tab) 1,000 mg BID PO 06/24/17 00:45 07/24/17 08:59 07/04/17 08:06 1,000 MG Oxcarbazepine (Trileptal Tab) 600 mg BID PO 06/24/17 00:45 07/24/17 08:59 07/04/17 08:57 600 MG Topiramate (Topamax Tab) 200 mg BID PO 06/24/17 00:45 07/24/17 08:59 07/04/17 08:04 200 MG Topiramate (Topamax Tab) 75 mg BID PO 06/26/17 08:00 07/24/17 08:59 07/04/17 08:05 75 MG Magnesium Oxide (Mag-Ox Tab) 400 mg BID PO 06/26/17 20:00 07/26/17 19:59 07/04/17 08:03 400 MG Menthol ([place]) 1 spring Q1H PRN SPRING 06/27/17 21:45 07/27/17 21:44 Phenol (Chloraseptic 1.4% [place]) 2 sprays Q2H PRN MT 06/27/17 21:45 07/27/17 21:44 06/30/17 23:28 2 SPRAYS Potassium Chloride (Klor-Con Tab) 20 meq DAILY PO 06/29/17 08:00 07/26/17 07:59 07/04/17 08:06 20 MEQ Albuterol/ Ipratropium (Duoneb) 3 ml Q4 PRN INH 07/01/17 08:15 07/31/17 08:14 Sodium Chloride 1,000 ml @ 100 mls/hr Q10H IV 07/03/17 13:00 08/02/17 12:59 07/04/17 08:57 50 MLS/HR Furosemide 30 mg/ Syringe 3 ml @ 4 mls/min BID17 IV 07/04/17 17:00 08/03/17 16:59
[2017-07-04] MEDS: HYDROCODONE/ACETAMI 10/325 TAB PO PRN (21:31)
[2017-07-04] MEDS: ENOXAPARIN 40 MG/0.4 ML SYR SQ SCH (23:00)
[2017-07-05] MEDS: SODIUM CHLORIDE 0.9% 1000ML 1,000 ML IV SCH (04:40)
[2017-07-05] MEDS: LEVOTHYROXINE 25 MCG TAB PO SCH (06:41)
[2017-07-05 07:22] VITALS: BP_SYST 87; BP_SYST 96; BP_DIAS 57; BP_DIAS 66; PULSE 61; TEMP 36.5; O2SAT 96
[2017-07-05] MEDS ORDERED: POTASSIUM CHLORIDE 10 MEQ TABCR PO ONE (08:30)
[2017-07-05] MEDS: TOPIRAMATE 100 MG TAB PO SCH ×2 (09:00→20:57)
[2017-07-05] MEDS: OXYBUTYNIN CHLORIDE 5 MG TABCR PO SCH (09:00)
[2017-07-05] MEDS: PANTOprazole SOD 40 MG TAB PO SCH (09:00)
[2017-07-05] MEDS: MULTIVITAMIN TAB PO SCH (09:01)
[2017-07-05] MEDS: POTASSIUM CHLORIDE 20 MEQ TABCR PO SCH (09:01)
[2017-07-05] MEDS: DULOXETINE HCL 60 MG CAP PO SCH (09:01)
[2017-07-05] MEDS: MAGNESIUM OXIDE 400 MG TAB PO SCH ×2 (09:01→20:58)
[2017-07-05] MEDS: CALCIUM 600MG + VIT D 400 IU TAB PO SCH ×2 (09:01→20:55)
[2017-07-05] MEDS: TOPIRAMATE 25 MG TAB PO SCH ×2 (09:02→20:59)
[2017-07-05] MEDS: DICLOFENAC SOD EC 75 MG TABCR PO SCH ×2 (09:02→20:56)
[2017-07-05] MEDS: OXCARBAZEPINE 150 MG TAB PO SCH ×2 (09:03→20:58)
[2017-07-05] MEDS: FUROSEMIDE INJ 10 MG in SYRINGE 0 ML IV SCH ×2 (09:07→17:48)
[2017-07-05] MEDS: DIVALPROEX SODIUM 500 MG DELAY RELEASE TAB PO SCH ×2 (09:14→20:57)
[2017-07-05 09:15] VITALS: O2SAT 96
[2017-07-05 09:28] LABS: CREATININE 0.62 mg/dl (0.60-1.20); POTASSIUM 3.8 mmol/L (3.5-5.1)
[2017-07-05 11:22] VITALS: BP 101/69; PULSE 89
[2017-07-05 16:29] VITALS: BP 95/58; PULSE 89; TEMP 36.6; O2SAT 97
[2017-07-05 16:31] LABS: CALCIUM 8.3 mg/dl (8.5-10.1); CREATININE 0.94 mg/dl (0.60-1.20); POTASSIUM 4.6 mmol/L (3.5-5.1)
--- NOTE | 2017-07-05 17:01 | Nephrology Progress Note ---
Nephrology Progress Note Date of Service: Jul 05, 2017. Subjective seen on rounds this am 925; no c/o pain; some unreliable hx Objective Date Time Temp Pulse Resp B/P (MAP) Pulse Ox O2 Delivery O2 Flow Rate FiO2 07/05/17 07:22 36.5 61 16 87/57 (67) 96 Room Air 96/66 (76) 07/05/17 00:00 Room Air 07/04/17 20:45 Room Air 07/04/17 16:02 36.6 98 20 117/74 (88) 98 Room Air 07/04/17 15:14 Room Air 07/04/17 08:19 36.7 70 16 101/66 (78) 97 Room Air 07/04/17 08:00 Room Air Physical Exam: GEN: up in chair on RA, nad, untouched breakfast tray before her HEENT: Mucous membranes are moist; hoarse. NECK: Supple. No jugular venous distention. CHEST: Bilateral clear to auscultation. CARDIOVASCULAR: S1 and S2, regular. ABDOMEN: Soft, nontender. EXTREMITIES: no edema. NEURO: benitez, fluent speech but perseverant Current Inpatient Medications Medications (Trade) Dose Ordered Sig/Ten Route Start Time Stop Time Status Last Admin Dose Admin Enoxaparin Sodium (Lovenox Inj) 40 mg Q24H SQ 06/23/17 23:00 07/23/17 22:59 07/03/17 19:48 40 MG Acetaminophen (Tylenol Tab) 650 mg Q4H PRN PO 06/23/17 21:30 07/23/17 21:29 07/02/17 23:34 650 MG Ondansetron HCl (Zofran Inj) 4 mg Q6H PRN IV 06/23/17 21:30 07/23/17 21:29 Diclofenac Sodium (Voltaren Tab) 75 mg BID PO 06/24/17 08:00 07/24/17 08:59 07/04/17 19:53 75 MG Duloxetine HCl (Cymbalta Cap) 60 mg DAILY PO 06/24/17 08:00 07/24/17 08:59 07/04/17 08:05 60 MG Acetaminophen/ Hydrocodone Bitart ([place] 10/325 Tab) 1 tab BID PRN PO 06/23/17 21:45 07/07/17 21:44 07/04/17 21:31 1 TAB Levothyroxine Sodium (Synthroid Tab) 25 mcg DAILYBB PO 06/24/17 06:30 07/24/17 06:59 07/05/17 06:41 25 MCG Multivitamins (Multivitamin Tab) 1 tab DAILY PO 06/24/17 08:00 07/24/17 08:59 07/04/17 08:04 1 TAB Calcium/Vitamin D (Caltrate Plus Tab) 1 tab BID PO 06/24/17 08:00 07/24/17 08:59 07/04/17 19:55 1 TAB Pantoprazole Sodium (Protonix Tab) 40 mg QAM PO 06/24/17 08:00 07/24/17 08:59 07/04/17 08:04 40 MG Oxybutynin Chloride (Ditropan-Xl Tab) 15 mg DAILY PO 06/24/17 08:00 07/24/17 08:59 07/04/17 08:04 15 MG Polyethylene (Miralax Powder Packet) 17 gm DAILY PRN PO 06/23/17 21:45 07/23/17 21:44 Divalproex Sodium (Depakote Delay Rel Tab) 1,000 mg BID PO 06/24/17 00:45 07/24/17 08:59 07/04/17 19:53 1,000 MG Oxcarbazepine (Trileptal Tab) 600 mg BID PO 06/24/17 00:45 07/24/17 08:59 07/04/17 19:51 600 MG Topiramate (Topamax Tab) 200 mg BID PO 06/24/17 00:45 07/24/17 08:59 07/04/17 19:55 200 MG Topiramate (Topamax Tab) 75 mg BID PO 06/26/17 08:00 07/24/17 08:59 07/04/17 19:54 75 MG Magnesium Oxide (Mag-Ox Tab) 400 mg BID PO 06/26/17 20:00 07/26/17 19:59 07/04/17 19:54 400 MG Menthol ([place]) 1 spring Q1H PRN [place] 06/27/17 21:45 07/27/17 21:44 Phenol (Chloraseptic 1.4% [place]) 2 sprays Q2H PRN [place] 06/27/17 21:45 07/27/17 21:44 06/30/17 23:28 2 SPRAYS Potassium Chloride (Klor-Con Tab) 20 meq DAILY PO 06/29/17 08:00 07/26/17 07:59 07/04/17 08:06 20 MEQ Albuterol/ Ipratropium (Duoneb) 3 ml Q4 PRN INH 07/01/17 08:15 07/31/17 08:14 Sodium Chloride 1,000 ml @ 100 mls/hr Q10H IV 07/03/17 13:00 08/02/17 12:59 07/05/17 04:40 100 MLS/HR Furosemide 30 mg/ Syringe 3 ml @ 4 mls/min BID17 IV 07/04/17 17:00 08/03/17 16:59 reviewed Assessment & Plan 62 yo female w/ hx of epilepsy, brain injury, chronic mild hyponatremia > 130 seen for hyponatremia thought to be medicine related -- possibly from triletpal or / and nsaids; also w/ chronic lung disease and a/w flu. pt overall doing very well. on fluid restriction and salt tablets. 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 -will replete K po >> extra 40 mEq dose given -currently on lasix 20 mg iv bid + NS at 100 mL hourly >> not very negative w/ this and will do trial of stopping NS and lowering IV lasix to 10 mg IV bid -some mild lower blood pressures noted this am >> 90s systolic; usually 110s >> monitor for now -recheck bmp 1500 >> acceptable -liberalized fluid restriction to 12oo mL
--- NOTE | 2017-07-05 17:16 | Progress Note ---
Medicine Progress Note Date & Time of Visit: Jul 05, 2017 at 17:07. Subjective Pt was seen and examined Lying in bed with no distress Denies any complaint She did not eat anything from her lunch Has not cough much Denies any chest pain, palpitation, dizziness and sob Objective Last 8 Hrs Date Time Temp Pulse Resp B/P (MAP) Pulse Ox O2 Delivery O2 Flow Rate FiO2 07/05/17 16:29 36.6 89 20 95/58 (70) 97 Room Air 07/05/17 15:10 Room Air 07/05/17 11:22 89 16 101/69 (80) 07/05/17 09:15 96 Room Air Physical Exam: General- No acute distress Head- atraumatic Eyes- PERRL, EOMI ENT- oropharynx clear Neck- supple, no JVD Lungs- No wheezing Heart- regular rhythm Abdomen- normal bowel sounds, soft Extremities- no calf tenderness Neuro- alert, oriented, PERRL, EOMI; no facial palsy Skin- warm & dry Laboratory Results: Last 24 Hours Test 07/05/17 08:46 07/05/17 15:06 Sodium Level 134 mmol/L 133 mmol/L Potassium Level 3.8 mmol/L 4.6 mmol/L Chloride Level 102 mmol/L 101 mmol/L Carbon Dioxide Level 23 mmol/L 22 mmol/L Anion Gap 9.0 mmol/L 10.0 mmol/L Blood Urea Nitrogen 21 mg/dl 21 mg/dl Creatinine 0.62 mg/dl 0.94 mg/dl Est Creatinine Clear Calc Drug Dose 90.1 ml/min 59.4 ml/min Estimated GFR () 110.4 74.3 Estimated GFR (Non- 95.3 64.1 BUN/Creatinine Ratio 33.7 22.5 Random Glucose 89 mg/dl 84 mg/dl Calcium Level 8.0 mg/dl 8.3 mg/dl Assessment & Plan ALTERED MENTAL STATUS Possible related to UTI vs Seizure CT head on admission showed no acute intracranial abnormality. Neuro was consulted Dr. Keny Butterfield UTI UA was positive for leukocytes, nitrite and bacteria Urine cx was contaminated repeat urine cx showed no growth, mostly result affected since pt has been on an abx. Completed course of Ceftriaxone INFLUENZA Positive influenza A CXR showed no infiltrate Completed course of tamiflu Clinically improved SEIZURE DISORDER Continue usual anticonvulsants. 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 Holley recommended to discontinue salt tablet starting on NS at 50ml/hr and will start on Lasix Continue monitor Na closely NA Goal 130 07/05 Na improved to 133 IVF was discontinue Continue fluid restriction Case discussed with Nephro Ok to discharge from nephro standpoint Check urine osmolarity and sodium, serum osmolarity and BMP in 1 week Continue lasix 20mg BID as per nephro HYPOKALEMIA Stable Continue monitor BMP HYPOMAGNESEMIA Stable Continue monitor Mg level VTE PROPHYLAXIS SQ enoxaparin. DISPOSITION Plan to discharge to [facility] tomorrow (they can take pt tomorrow as per technical product manager) Family Medicine follow-up with Dr. Vaughan. Consultants: Nephro Neuro Current Inpatient Medications: Current Inpatient Medications Medications (Trade) Dose Ordered Sig/Ten Route Start Time Stop Time Status Last Admin Dose Admin Enoxaparin Sodium (Lovenox Inj) 40 mg Q24H SQ 06/23/17 23:00 07/23/17 22:59 07/03/17 19:48 40 MG Acetaminophen (Tylenol Tab) 650 mg Q4H PRN PO 06/23/17 21:30 07/23/17 21:29 07/02/17 23:34 650 MG Ondansetron HCl (Zofran Inj) 4 mg Q6H PRN IV 06/23/17 21:30 07/23/17 21:29 Diclofenac Sodium (Voltaren Tab) 75 mg BID PO 06/24/17 08:00 07/24/17 08:59 07/05/17 09:02 75 MG Duloxetine HCl (Cymbalta Cap) 60 mg DAILY PO 06/24/17 08:00 07/24/17 08:59 07/05/17 09:01 60 MG Acetaminophen/ Hydrocodone Bitart ([place] 10/325 Tab) 1 tab BID PRN PO 06/23/17 21:45 07/07/17 21:44 07/04/17 21:31 1 TAB Levothyroxine Sodium (Synthroid Tab) 25 mcg DAILYBB PO 06/24/17 06:30 07/24/17 06:59 07/05/17 06:41 25 MCG Multivitamins (Multivitamin Tab) 1 tab DAILY PO 06/24/17 08:00 07/24/17 08:59 07/05/17 09:01 1 TAB Calcium/Vitamin D (Caltrate Plus Tab) 1 tab BID PO 06/24/17 08:00 07/24/17 08:59 07/05/17 09:01 1 TAB Pantoprazole Sodium (Protonix Tab) 40 mg QAM PO 06/24/17 08:00 07/24/17 08:59 07/05/17 09:00 40 MG Oxybutynin Chloride (Ditropan-Xl Tab) 15 mg DAILY PO 06/24/17 08:00 07/24/17 08:59 07/05/17 09:00 15 MG Polyethylene (Miralax Powder Packet) 17 gm DAILY PRN PO 06/23/17 21:45 07/23/17 21:44 Divalproex Sodium (Depakote Delay Rel Tab) 1,000 mg BID PO 06/24/17 00:45 07/24/17 08:59 07/05/17 09:14 1,000 MG Oxcarbazepine (Trileptal Tab) 600 mg BID PO 06/24/17 00:45 07/24/17 08:59 07/05/17 09:03 600 MG Topiramate (Topamax Tab) 200 mg BID PO 06/24/17 00:45 07/24/17 08:59 07/05/17 09:00 200 MG Topiramate (Topamax Tab) 75 mg BID PO 06/26/17 08:00 07/24/17 08:59 07/05/17 09:02 75 MG Magnesium Oxide (Mag-Ox Tab) 400 mg BID PO 06/26/17 20:00 07/26/17 19:59 07/05/17 09:01 400 MG Menthol (Nice [place]) 1 ramila Q1H PRN RAMILA 06/27/17 21:45 07/27/17 21:44 Phenol (Chloraseptic 1.4% [place]) 2 sprays Q2H PRN MT 06/27/17 21:45 07/27/17 21:44 06/30/17 23:28 2 SPRAYS Potassium Chloride (Klor-Con Tab) 20 meq DAILY PO 06/29/17 08:00 07/26/17 07:59 07/05/17 09:01 20 MEQ Albuterol/ Ipratropium (Duoneb) 3 ml Q4 PRN INH 07/01/17 08:15 07/31/17 08:14 Furosemide 10 mg/ Syringe 1 ml @ 4 mls/min BID17 IV 07/05/17 09:00 08/03/17 16:59 07/05/17 09:07 4 MLS/MIN
[2017-07-05] MEDS: HYDROCODONE/ACETAMI 10/325 TAB PO PRN (20:55)
[2017-07-05] MEDS: ENOXAPARIN 40 MG/0.4 ML SYR SQ SCH (20:59)
[2017-07-05 23:11] VITALS: BP 102/69; PULSE 81; TEMP 36.6; O2SAT 96
[2017-07-06 06:35] LABS: CALCIUM 8.2 mg/dl (8.5-10.1); CREATININE 0.67 mg/dl (0.60-1.20); POTASSIUM 3.6 mmol/L (3.5-5.1)
[2017-07-06] MEDS: LEVOTHYROXINE 25 MCG TAB PO SCH (06:39)
[2017-07-06 07:08] VITALS: BP_SYST 105; BP_SYST 73; BP_DIAS 46; BP_DIAS 68; PULSE 65; TEMP 36.8; O2SAT 95
[2017-07-06] MEDS: DIVALPROEX SODIUM 500 MG DELAY RELEASE TAB PO SCH (09:01)
[2017-07-06] MEDS: MULTIVITAMIN TAB PO SCH (09:01)
[2017-07-06] MEDS: OXYBUTYNIN CHLORIDE 5 MG TABCR PO SCH (09:01)
[2017-07-06] MEDS: PANTOprazole SOD 40 MG TAB PO SCH (09:01)
[2017-07-06] MEDS: TOPIRAMATE 100 MG TAB PO SCH (09:01)
[2017-07-06] MEDS: DICLOFENAC SOD EC 75 MG TABCR PO SCH (09:02)
[2017-07-06] MEDS: POTASSIUM CHLORIDE 20 MEQ TABCR PO SCH (09:02)
[2017-07-06] MEDS: DULOXETINE HCL 60 MG CAP PO SCH (09:02)
[2017-07-06] MEDS: MAGNESIUM OXIDE 400 MG TAB PO SCH (09:02)
[2017-07-06] MEDS: OXCARBAZEPINE 150 MG TAB PO SCH (09:03)
[2017-07-06] MEDS: CALCIUM 600MG + VIT D 400 IU TAB PO SCH (09:03)
[2017-07-06] MEDS: FUROSEMIDE INJ 10 MG in SYRINGE 0 ML IV SCH (09:03)
[2017-07-06] MEDS: TOPIRAMATE 25 MG TAB PO SCH (09:03)
--- NOTE | 2017-07-06 09:33 | Progress Note ---
Medicine Progress Note Date & Time of Visit: Jul 06, 2017 at 09:28. Subjective Pt was seen and examined Lying in bed with no distress Her cough is improved Denies any chest pain, palpitation and SOB Objective Last 8 Hrs Date Time Temp Pulse Resp B/P (MAP) Pulse Ox O2 Delivery O2 Flow Rate FiO2 07/06/17 07:08 36.8 65 18 105/68 (80) 95 Physical Exam: General- No acute distress Head- atraumatic Eyes- PERRL, EOMI ENT- oropharynx clear Neck- supple, no JVD Lungs- No wheezing Heart- regular rhythm Abdomen- normal bowel sounds, soft Extremities- no calf tenderness Neuro- alert, oriented, PERRL, EOMI; no facial palsy Skin- warm & dry Laboratory Results: Last 24 Hours Test 07/05/17 15:06 07/06/17 05:39 Sodium Level 133 mmol/L 131 mmol/L Potassium Level 4.6 mmol/L 3.6 mmol/L Chloride Level 101 mmol/L 100 mmol/L Carbon Dioxide Level 22 mmol/L 25 mmol/L Anion Gap 10.0 mmol/L 6.0 mmol/L Blood Urea Nitrogen 21 mg/dl 27 mg/dl Creatinine 0.94 mg/dl 0.67 mg/dl Est Creatinine Clear Calc Drug Dose 59.4 ml/min 83.3 ml/min Estimated GFR () 74.3 107.7 Estimated GFR (Non- 64.1 92.9 BUN/Creatinine Ratio 22.5 40.6 Random Glucose 84 mg/dl 88 mg/dl Calcium Level 8.3 mg/dl 8.2 mg/dl Assessment & Plan ALTERED MENTAL STATUS Possible related to UTI vs Seizure CT head on admission showed no acute intracranial abnormality. Neuro was consulted Dr. Keny Butterfield UTI UA was positive for leukocytes, nitrite and bacteria Urine cx was contaminated repeat urine cx showed no growth, mostly result affected since pt has been on an abx. Completed course of Ceftriaxone INFLUENZA Positive influenza A CXR showed no infiltrate Completed course of tamiflu Clinically improved SEIZURE DISORDER Continue usual anticonvulsants. 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 Holley recommended to discontinue salt tablet starting on NS at 50ml/hr and will start on Lasix Continue monitor Na closely NA Goal 130 / Na 131 today IVF was discontinue Continue fluid restriction Case discussed with Nephro Ok to discharge from nephro standpoint Check urine osmolarity and sodium, serum osmolarity and BMP in 1 week Continue lasix 20mg BID as per nephro HYPOKALEMIA Stable Continue monitor BMP HYPOMAGNESEMIA Stable Continue monitor Mg level VTE PROPHYLAXIS SQ enoxaparin. DISPOSITION Plan to discharge to [facility] tomorrow (they can take pt tomorrow as per manager of production) Family Medicine follow-up with Dr. Vaughan. Consultants: Nephro Neuro Current Inpatient Medications: Current Inpatient Medications Medications (Trade) Dose Ordered Sig/Ten Route Start Time Stop Time Status Last Admin Dose Admin Enoxaparin Sodium (Lovenox Inj) 40 mg Q24H SQ 06/23/17 23:00 07/23/17 22:59 07/05/17 20:59 40 MG Acetaminophen (Tylenol Tab) 650 mg Q4H PRN PO 06/23/17 21:30 07/23/17 21:29 07/02/17 23:34 650 MG Ondansetron HCl (Zofran Inj) 4 mg Q6H PRN IV 06/23/17 21:30 07/23/17 21:29 Diclofenac Sodium (Voltaren Tab) 75 mg BID PO 06/24/17 08:00 07/24/17 08:59 07/05/17 20:56 75 MG Duloxetine HCl (Cymbalta Cap) 60 mg DAILY PO 06/24/17 08:00 07/24/17 08:59 07/05/17 09:01 60 MG Acetaminophen/ Hydrocodone Bitart ([place] 10/325 Tab) 1 tab BID PRN PO 06/23/17 21:45 07/07/17 21:44 07/05/17 20:55 1 TAB Levothyroxine Sodium (Synthroid Tab) 25 mcg DAILYBB PO 06/24/17 06:30 07/24/17 06:59 07/06/17 06:39 25 MCG Multivitamins (Multivitamin Tab) 1 tab DAILY PO 06/24/17 08:00 07/24/17 08:59 07/05/17 09:01 1 TAB Calcium/Vitamin D (Caltrate Plus Tab) 1 tab BID PO 06/24/17 08:00 07/24/17 08:59 07/05/17 20:55 1 TAB Pantoprazole Sodium (Protonix Tab) 40 mg QAM PO 06/24/17 08:00 07/24/17 08:59 07/05/17 09:00 40 MG Oxybutynin Chloride (Ditropan-Xl Tab) 15 mg DAILY PO 06/24/17 08:00 07/24/17 08:59 07/05/17 09:00 15 MG Polyethylene (Miralax Powder Packet) 17 gm DAILY PRN PO 06/23/17 21:45 07/23/17 21:44 Divalproex Sodium (Depakote Delay Rel Tab) 1,000 mg BID PO 06/24/17 00:45 07/24/17 08:59 07/05/17 20:57 1,000 MG Oxcarbazepine (Trileptal Tab) 600 mg BID PO 06/24/17 00:45 07/24/17 08:59 07/05/17 20:58 600 MG Topiramate (Topamax Tab) 200 mg BID PO 06/24/17 00:45 07/24/17 08:59 07/05/17 20:57 200 MG Topiramate (Topamax Tab) 75 mg BID PO 06/26/17 08:00 07/24/17 08:59 07/05/17 20:59 75 MG Magnesium Oxide (Mag-Ox Tab) 400 mg BID PO 06/26/17 20:00 07/26/17 19:59 07/05/17 20:58 400 MG Menthol (Nice Ramila) 1 ramila Q1H PRN RAMILA 06/27/17 21:45 07/27/17 21:44 Phenol (Chloraseptic 1.4% [place]) 2 sprays Q2H PRN MT 06/27/17 21:45 07/27/17 21:44 06/30/17 23:28 2 SPRAYS Potassium Chloride (Klor-Con Tab) 20 meq DAILY PO 06/29/17 08:00 07/26/17 07:59 07/05/17 09:01 20 MEQ Albuterol/ Ipratropium (Duoneb) 3 ml Q4 PRN INH 07/01/17 08:15 07/31/17 08:14 Furosemide 10 mg/ Syringe 1 ml @ 4 mls/min BID17 IV 07/05/17 09:00 08/03/17 16:59 07/05/17 17:48 4 MLS/MIN
[2017-07-06] MEDS ORDERED: FURO-85 PO (09:38)
[2017-07-06] MEDS ORDERED: POTA10CA28 PO (09:38)
--- NOTE | 2017-07-06 09:44 | Discharge Instructions ---
Discharge Instructions Date of Service Jul 06, 2017. Admission Reason for Admission: Altered Mental Status, Uti Discharge Discharge Diagnosis / Problem: ALTERED MENTAL STATUS, UTI, Hyponatremia Discharge Goals Goal(s): Decrease discomfort, Improve function, Improve disease control Activity Recommendations Activity Limitations: resume your previous activity (as tolerated) . Instructions / Follow-Up Instructions / Follow-Up Follow up with your primary care provider Dr. Vaughan on Jul 09 @ 11:05 AM Follow up with neurology dr. Bustillo (please call to schedule appointment) Check BMP, urine sodium, urine osmolarity and serum osmolarity within 1 week to monitor electrolytes and renal function Continue Lasix 20mg twice a day for now, please give the dose 6hrs apart Follow up with Nephrology if sodium continues to drop Continue physical therapy Fall precaution Current Hospital Diet Patient's current hospital diet: Regular Diet Discharge Diet Recommended Diet: Regular Diet Pending Studies Studies pending at discharge: no Medical Emergencies . Who to Call and When: Medical Emergencies: If at any time you feel your situation is an emergency, please call 911 immediately. . Non-Emergent Contact Non-Emergency issues call your: Primary Care Provider Call Non-Emergent contact if: you have any medication questions . . "Provider Documentation" section prepared by Salena Briceño. . VTE Core Measure Inpt VTE Proph given/why not?: Enoxaparin (Lovenox)SQ
[2017-07-06 11:15] VITALS: BP 105/68; PULSE 65; TEMP 36.8; O2SAT 95
--- NOTE | 2017-07-06 13:18 | Nephrology Progress Note ---
Nephrology Progress Note Date of Service: Jul 06, 2017. Subjective seen on rounds this am 1025; no c/o pain; some unreliable hx as previously; untouched breakfast again Objective Date Time Temp Pulse Resp B/P (MAP) Pulse Ox O2 Delivery O2 Flow Rate FiO2 07/06/17 11:15 36.8 65 18 95 Room Air 07/06/17 09:00 Room Air 07/06/17 07:08 36.8 65 18 105/68 (80) 95 07/06/17 00:00 Room Air 07/05/17 23:11 36.6 81 18 102/69 (80) 96 Room Air 07/05/17 20:00 Room Air 07/05/17 16:29 36.6 89 20 95/58 (70) 97 Room Air 07/05/17 15:10 Room Air Physical Exam: GEN: up in chairon RA, nad, untouched breakfast tray before her HEENT: Mucous membranes are moist; hoarse. NECK: Supple. No jugular venous distention. CHEST: Bilateral clear to auscultation. CARDIOVASCULAR: S1 and S2, regular. ABDOMEN: Soft, nontender. EXTREMITIES: no edema. NEURO: benitez, fluent speech but perseverant Current Inpatient Medications Medications (Trade) Dose Ordered Sig/Ten Route Start Time Stop Time Status Last Admin Dose Admin Enoxaparin Sodium (Lovenox Inj) 40 mg Q24H SQ 06/23/17 23:00 07/23/17 22:59 07/05/17 20:59 40 MG Acetaminophen (Tylenol Tab) 650 mg Q4H PRN PO 06/23/17 21:30 07/23/17 21:29 07/02/17 23:34 650 MG Ondansetron HCl (Zofran Inj) 4 mg Q6H PRN IV 06/23/17 21:30 07/23/17 21:29 Diclofenac Sodium (Voltaren Tab) 75 mg BID PO 06/24/17 08:00 07/24/17 08:59 07/06/17 09:02 75 MG Duloxetine HCl (Cymbalta Cap) 60 mg DAILY PO 06/24/17 08:00 07/24/17 08:59 07/06/17 09:02 60 MG Acetaminophen/ Hydrocodone Bitart ([place] 10/325 Tab) 1 tab BID PRN PO 06/23/17 21:45 07/07/17 21:44 07/05/17 20:55 1 TAB Levothyroxine Sodium (Synthroid Tab) 25 mcg DAILYBB PO 06/24/17 06:30 07/24/17 06:59 07/06/17 06:39 25 MCG Multivitamins (Multivitamin Tab) 1 tab DAILY PO 06/24/17 08:00 07/24/17 08:59 07/06/17 09:01 1 TAB Calcium/Vitamin D (Caltrate Plus Tab) 1 tab BID PO 06/24/17 08:00 07/24/17 08:59 07/06/17 09:03 1 TAB Pantoprazole Sodium (Protonix Tab) 40 mg QAM PO 06/24/17 08:00 07/24/17 08:59 07/06/17 09:01 40 MG Oxybutynin Chloride (Ditropan-Xl Tab) 15 mg DAILY PO 06/24/17 08:00 07/24/17 08:59 07/06/17 09:01 15 MG Polyethylene (Miralax Powder Packet) 17 gm DAILY PRN PO 06/23/17 21:45 07/23/17 21:44 Divalproex Sodium (Depakote Delay Rel Tab) 1,000 mg BID PO 06/24/17 00:45 07/24/17 08:59 07/06/17 09:01 1,000 MG Oxcarbazepine (Trileptal Tab) 600 mg BID PO 06/24/17 00:45 07/24/17 08:59 07/06/17 09:03 600 MG Topiramate (Topamax Tab) 200 mg BID PO 06/24/17 00:45 07/24/17 08:59 07/06/17 09:01 200 MG Topiramate (Topamax Tab) 75 mg BID PO 06/26/17 08:00 07/24/17 08:59 07/06/17 09:03 75 MG Magnesium Oxide (Mag-Ox Tab) 400 mg BID PO 06/26/17 20:00 07/26/17 19:59 07/06/17 09:02 400 MG Menthol ([place]) 1 [place] Q1H PRN [place] 06/27/17 21:45 07/27/17 21:44 Phenol (Chloraseptic 1.4% [place]) 2 sprays Q2H PRN MT 06/27/17 21:45 07/27/17 21:44 06/30/17 23:28 2 SPRAYS Potassium Chloride (Klor-Con Tab) 20 meq DAILY PO 06/29/17 08:00 07/26/17 07:59 07/06/17 09:02 20 MEQ Albuterol/ Ipratropium (Duoneb) 3 ml Q4 PRN INH 07/01/17 08:15 07/31/17 08:14 Furosemide 10 mg/ Syringe 1 ml @ 4 mls/min BID17 IV 07/05/17 09:00 08/03/17 16:59 07/06/17 09:03 4 MLS/MIN Last 24 Hours Test 07/05/17 15:06 07/06/17 05:39 Sodium Level 133 mmol/L 131 mmol/L Potassium Level 4.6 mmol/L 3.6 mmol/L Chloride Level 101 mmol/L 100 mmol/L Carbon Dioxide Level 22 mmol/L 25 mmol/L Anion Gap 10.0 mmol/L 6.0 mmol/L Blood Urea Nitrogen 21 mg/dl 27 mg/dl Creatinine 0.94 mg/dl 0.67 mg/dl Est Creatinine Clear Calc Drug Dose 59.4 ml/min 83.3 ml/min Estimated GFR () 74.3 107.7 Estimated GFR (Non- 64.1 92.9 BUN/Creatinine Ratio 22.5 40.6 Random Glucose 84 mg/dl 88 mg/dl Calcium Level 8.3 mg/dl 8.2 mg/dl Assessment & Plan 62 yo female w/ hx of epilepsy, brain injury, chronic mild hyponatremia > 130 seen for hyponatremia thought to be medicine related -- possibly from triletpal or / and nsaids; also w/ chronic lung disease and a/w flu. pt overall doing very well. on fluid restriction and salt tablets. 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 for d/c today w/ sNa 131 -change lasix to 20 mEq po bid -cont K 20 mEq po bid at d/c -will replete K po >> extra 40 mEq dose given -at d/c cont fluid restriction 12oo mL daily -at 07/08 pcp f/u or w/in a week of d/c, recheck bmp, urine osm, rd urien sodium care coordinated w/ dr lynne
--- NOTE | 2017-07-09 09:26 | Discharge Summary ---
Discharge Summary Date of Service Jul 09, 2017. Discharge Summary Admission Date: Jun 23, 2017 at 21:26 Discharge Date: Jul 06, 2017 Discharge Disposition: Personal care Principal Diagnosis: ALTERED MENTAL STATUS Secondary Diagnoses/Problems: UTI Hyponatremia INFLUENZA A SEIZURE DISORDER HYPOMAGNESEMIA HYPONATREMIA Procedures: [~ rep ct add3]] CHEST ONE VIEW PORTABLE CLINICAL HISTORY: fever, hypoxia dyspnea COMPARISON STUDY: 06/23/2017 FINDINGS: Chronic pleural and parenchymal change left lung base. No acute infiltrate. Right hemidiaphragm is smooth. No significant cardiac enlargement. IMPRESSION: Chronic change. No acute process. No change from the prior exam. The above report was generated using voice recognition software. It may contain grammatical, syntax or spelling errors. Electronically signed by: Neto Crowell M.D. 06/27/2017 7:22 AM Dictated Date/Time: 06/27/2017 7:[address]AST CT DOSE: 1074.96 mGy.cm HISTORY: Altered mental status. TECHNIQUE: Multiaxial CT images of the head were performed without the use of intravenous contrast. Automated exposure control was utilized for this study. A dose lowering technique was utilized adhering to the principles of ALARA. Comparison: None. Findings: The paranasal sinuses and mastoid air cells are clear. Again seen are postoperative changes from left temporal craniotomy with associated encephalomalacia in the left temporal lobe. There is mild associated ex vacuo dilatation of the left lateral ventricle. There are age-related involutional changes noting mild subcortical and periventricular microangiopathic disease. There is no hemorrhage, mass-effect, or evidence of acute territorial ischemia by CT criteria. Aburto-white matter differentiation is maintained. No extra-axial fluid collection is seen. Prior left craniotomy and left temporal craniectomy. Impression: No significant change compared to the prior study. No acute intracranial abnormality. Old postoperative changes as described above Electronically signed by: Jacek Kendall M.D. 06/23/2017 7:58 PM Dictated Date/Time: 06/23/2017 7:52 PM EXAMINATION: RENAL ULTRASOUND CLINICAL HISTORY: Urinary tract infection COMPARISON STUDY: CT scan performed December 2009 FINDINGS: The right kidney measures 10.9 cm. The left kidney measures 10.8 cm. There is no evidence of hydronephrosis. There is a 17 mm upper pole right renal cyst. There is a 13 mm septated mid pole left renal cyst. There is a prominent mid pole left renal cortical scar. There is a 13 mm upper pole left renal calcification. No bladder abnormalities are identified. Neither ureteral jet was visualized. IMPRESSION : 1. No evidence of hydronephrosis 2. Left renal cortical scar 3. 13 mm upper pole left renal calcification 4. 17 mm right renal cyst. 13 mm septated left renal cyst Electronically signed by: Rubin Shay M.D. 06/25/2017 8:08 AM Dictated Date/Time: 06/25/2017 8:05 AM Consultations: Nephro Neuro Medication Reconciliation New Medications: Furosemide (Lasix) 20 Mg Tab 20 MG PO BID, #30 TAB Please give lasix 6hrs apart Potassium Chloride (Micro-K Ext Rel) 10 Meq Cap 10 MEQ PO DAILY for 30 Days, CAP Continued Medications: Calcium Carbonate-Vitamin D (Oyster Shell Calcium/D3 500-400 mg-Unit) 1 Tab Tab 1 TAB PO BID Diclofenac (Voltaren) 75 Mg Tabcr 75 MG PO BID, TAB Divalproex Sodium (Depakote Delay Rel) 500 Mg Tab 1000 MG PO BID, TAB Duloxetine Hcl (Cymbalta) 60 Mg Cap 1 CAP PO DAILY for 90 Days, #90 CAP 3 Refills Hydrocodone/Acetaminophen 10MG/325MG ([place] 10MG/325MG) Tab 1 TABLET PO BID, 0 Refills Levothyroxine Sodium (Levothyroxine Sodium) 25 Mcg Tab 25 MCG PO DAILY Multivitamin (Multivitamin) Tab 1 TABLET PO DAILY, 0 Refills Omeprazole (Prilosec) 20 Mg Capcr 20 MG PO UD, CAP take 20mg in the evening with 75mg of diclofenac Oxcarbazepine (Trileptal) 300 Mg Tab 600 MG PO BID, TAB Oxybutynin Chloride (Oxybutynin Chloride Er) 15 Mg Tab 15 MG PO DAILY for 90 Days, #90 TAB 3 Refills Polyethylene Glycol 3350 (Miralax) 1 Pow Pow 17 GM PO DAILY PRN for Constipation, #527 GM Topiramate (Topamax) 200 Mg Tab 200 MG PO BID, 0 Refills take 200mg with a 75mg tablet for a total dose of 275mg twice a day Topiramate (Topamax) 25 Mg Tab 75 MG PO BID, TAB take 75mg with a 200mg tablet for a total dose of 275mg twice a day Tramadol (Ultram) 50 Mg Tab 50 MG PO Q6H PRN for Pain, TAB Admission Information HPI (per Admitting provider): 61 year old female who presents to the ED with altered mental status. Patient has history of TBI and Epilepsy. History is unobtainable from patient due to her mental status. Per review of outpatient records, patient does have a caregiver however she is unable to provide the name of that person currently. Patient was found wandering the halls of her apartment building. Her neighbors called EMS. Patient is currently without complaint. When asked orientation questions, she responds, "Oh I hate this." In the ED, patient's U/A suggests UTI. Other labs are unremarkable. Vitals are stable. Physical Exam (per Admitting): General Appearance: WD/WN, no apparent distress Head: normocephalic, atraumatic Eyes: normal inspection, EOMI, sclerae normal ENT: hearing grossly normal, + pertinent finding (mucous membranes dry) Neck: supple, no JVD, trachea midline Respiratory/Chest: no respiratory distress, + crackles (faint right base that clear with coughing) Cardiovascular: regular rate, rhythm, no edema, normal peripheral pulses Abdomen/GI: normal bowel sounds, non tender, soft, no organomegaly Back: no CVA tenderness Extremities/Musculoskelatal: normal inspection, no calf tenderness, normal capillary refill Neurologic/Psych: no motor/sensory deficits, alert, + disoriented (to time, place, and situation) Skin: normal color, warm/dry Hospital Course ALTERED MENTAL STATUS Possible related to UTI vs Seizure CT head on admission showed no acute intracranial abnormality. Neuro was consulted Dr. Bustillo Stable UTI UA was positive for leukocytes, nitrite and bacteria Urine cx was contaminated repeat urine cx showed no growth, mostly result affected since pt has been on an abx. Completed course of Ceftriaxone INFLUENZA Positive influenza A CXR showed no infiltrate Completed course of tamiflu Clinically improved SEIZURE DISORDER Continue usual anticonvulsants. 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 Holley recommended to discontinue salt tablet starting on NS at 50ml/hr and will start on Lasix Continue monitor Na closely NA Goal 130 2/20 Na 131 today IVF was discontinue Continue fluid restriction Case discussed with Nephro Ok to discharge from nephro standpoint Check urine osmolarity and sodium, serum osmolarity and BMP in 1 week Continue lasix 20mg BID as per nephro HYPOKALEMIA Stable Continue monitor BMP HYPOMAGNESEMIA Stable Continue monitor Mg level VTE PROPHYLAXIS SQ enoxaparin. DISPOSITION Plan to discharge to [facility] tomorrow (they can take pt tomorrow as per manager of customer billing) Family Medicine follow-up with Dr. Vaughan. Total time spent on discharge = 35 MINUTES This includes examination of the patient, discharge planning, medication reconciliation, and communication with other providers. Discharge Instructions Discharge Instructions Date of Service Jul 06, 2017. Admission Reason for Admission: Altered Mental Status, Uti Discharge Discharge Diagnosis / Problem: ALTERED MENTAL STATUS, UTI, Hyponatremia Discharge Goals Goal(s): Decrease discomfort, Improve function, Improve disease control Activity Recommendations Activity Limitations: resume your previous activity (as tolerated) . Instructions / Follow-Up Instructions / Follow-Up Follow up with your primary care provider Dr. Vaughan on Jul 09 @ 11:05 AM Follow up with neurology dr. Bustillo (please call to schedule appointment) Check BMP, urine sodium, urine osmolarity and serum osmolarity within 1 week to monitor electrolytes and renal function Continue Lasix 20mg twice a day for now, please give the dose 6hrs apart Follow up with Nephrology if sodium continues to drop Continue physical therapy Fall precaution Current Hospital Diet Patient's current hospital diet: Regular Diet Discharge Diet Recommended Diet: Regular Diet Pending Studies Studies pending at discharge: no Medical Emergencies . Who to Call and When: Medical Emergencies: If at any time you feel your situation is an emergency, please call 911 immediately. . Non-Emergent Contact Non-Emergency issues call your: Primary Care Provider Call Non-Emergent contact if: you have any medication questions . . "Provider Documentation" section prepared by Salena Briceño. . VTE Core Measure Inpt VTE Proph given/why not?: Enoxaparin (Lovenox)SQ Additional Copies To Diann Vaughan M.D.
== END 2017-07-06 15:37 | disposition home or self-care (01) | DRG 689 ==
LOC: EDBD 19:13 → C.EDB 19:15 → C.4E 21:26 → UNDOADMIN 21:26 → ENRESERV 21:58
PROVIDERS: ADMIT Hospitalist; ATTEND Internal Medicine
DX: N39.0 Urinary tract infection, site not specified (principal); G40.209 Localization-related (focal) (partial) symptomatic epilepsy and epileptic syndromes with complex partial seizures, not intractable, without status epilepticus; G93.41 Metabolic encephalopathy; E22.2 Syndrome of inappropriate secretion of antidiuretic hormone; T41.0X5A Adverse effect of inhaled anesthetics, initial encounter; J10.1 Influenza due to other identified influenza virus with other respiratory manifestations; E03.9 Hypothyroidism, unspecified; S06.9X9S Unspecified intracranial injury with loss of consciousness of unspecified duration, sequela; E83.42 Hypomagnesemia; G62.9 Polyneuropathy, unspecified; G25.0 Essential tremor; I10 Essential (primary) hypertension; E87.6 Hypokalemia; Z82.49 Family history of ischemic heart disease and other diseases of the circulatory system; Z88.8 Allergy status to other drugs, medicaments and biological substances; V89.2XXS Person injured in unspecified motor-vehicle accident, traffic, sequela; Z88.1 Allergy status to other antibiotic agents; Z87.891 Personal history of nicotine dependence; Y92.039 Unspecified place in apartment as the place of occurrence of the external cause

== ENCOUNTER → 2017-07-08 | Outpatient (CLI) | payer OTHER ==
[~2017-07-08] MED LIST changes: -ALEN70TA2 PO; +DULO60CA44 PO; +FURO-85 PO; +OXYB15TA PO; +POLY335019 PO; +POTA10CA28 PO; -TOPI50TA16 PO; +TRAM-10 PO
[2017-07-08 08:33] LABS: BLOOD UREA NITROGEN 30 mg/dl (7-18); CALCIUM 8.6 mg/dl (8.5-10.1); CARBON DIOXIDE 30 mmol/L (21-32); CREATININE 0.84 mg/dl (0.60-1.20); GLUCOSE 87 mg/dl (70-99); POTASSIUM 4.1 mmol/L (3.5-5.1); SODIUM 137 mmol/L (136-145)
[2017-07-08 08:41] LABS: SODIUM RANDOM URINE 65 mEq/L
[2017-07-08 08:51] LABS: OSMOLALITY,URINE 470 mOms/kg (500-800)
--- NOTE | 2017-07-16 12:00 | CODING QUERY NO DIAGNOSIS ---
TREATMENT RENDERED WITHOUT A DIAGNOSIS : 53 To promote full compliance with coding requirements relating to patient care, physician participation is requested in all cases of radio television announcer uncertainty. Please assist us with providing a diagnosis/symptom for the test(s) below: A diagnosis/symptom was not documented on your Order. A valid diagnosis/symptom is required to bill all insurances. Please remember that we are unable to code a diagnosis of rule out, probable, possible, questionable, or suspected. Tests that require a diagnosis: DOS: 07/08/17 * OSMOLALITY, SERUM DIAGNOSIS: * SODIUM RANDOM URINE DIAGNOSIS: * OSMOLALITY URINE DIAGNOSIS: * PARTIAL RENAL PROFILE DIAGNOSIS: Provider Signature: Date: Thank you Donna Zhong Health Information Management Once completed, please kindly fax back to [phone] For questions please call [phone]
== END | disposition home or self-care (01) ==
LOC: C.LABWYN 08:02
PROVIDERS: ATTEND Family Medicine
DX: E87.1 Hypo-osmolality and hyponatremia (principal)

== ENCOUNTER → 2017-08-10 | Outpatient (CLI) | payer OTHER ==
[~2017-08-10] MED LIST changes: -POTA10CA28 PO
[2017-08-10 08:17] LABS: BASO % 0.4 %; BASO ABS # 0.04 K/uL (0-0.2); EOS % 2.5 %; EOS ABS # 0.22 K/uL (0-0.5); HEMATOCRIT 34.9 % (37-47); HEMOGLOBIN 11.5 g/dL (12.0-16.0); IG# 0.03 K/uL (0.00-0.02); LYMPH ABS # 2.95 K/uL (1.2-3.4); MEAN CELL VOLUME 96.9 fL (80-100); MEAN CORPUSCULAR HEMOGLOBIN 31.9 pg (25-34); MEAN PLATELET VOLUME 9.4 fL (7.4-10.4); MONO % 10.9 %; MONO ABS # 0.98 K/uL (0.11-0.59); NEUT % 52.9 %; NEUT ABS # 4.73 K/uL (1.4-6.5); PLATELET COUNT 364 K/uL (130-400); RED CELL DISTRIBUTION WIDTH CV 14.5 % (11.5-14.5); RED CELL DISTRIBUTION WIDTH SD 51.7 fL (36.4-46.3); WHITE BLOOD COUNT 8.95 K/uL (4.8-10.8)
[2017-08-10 08:56] LABS: ALBUMIN 2.7 gm/dl (3.4-5.0); ALT/SGPT 13 U/L (12-78); BLOOD UREA NITROGEN 26 mg/dl (7-18); CALCIUM 8.2 mg/dl (8.5-10.1); CARBON DIOXIDE 29 mmol/L (21-32); CREATININE 0.88 mg/dl (0.60-1.20); GLUCOSE 90 mg/dl (70-99); POTASSIUM 3.7 mmol/L (3.5-5.1); SODIUM 141 mmol/L (136-145)
[2017-08-10 09:06] LABS: ALKALINE PHOSPHATASE 88 U/L (45-117); AST/SGOT 14 U/L (15-37); TOTAL PROTEIN 6.3 gm/dl (6.4-8.2)
== END ==
LOC: C.LABWYN 07:56
PROVIDERS: ATTEND Psychiatry & Neurology Neurology
DX: G40.209 Localization-related (focal) (partial) symptomatic epilepsy and epileptic syndromes with complex partial seizures, not intractable, without status epilepticus (principal)

== ENCOUNTER → 2017-09-17 | Outpatient (CLI) | payer OTHER | END | disposition home or self-care (01) | LOC: C.LABSPEC 16:30 | PROVIDERS: ATTEND Family Medicine | DX: R41.0 Disorientation, unspecified (principal) ==